=== PATIENT | female | born 1935 | race Caucasian/White ===

== ENCOUNTER → 2018-08-14 | Outpatient (CLI) | payer MEDICARE, BC ==
--- NOTE | 2018-08-16 08:10 | MM ---
Reason for exam: screening (asymptomatic). Last mammogram was performed 1 year and 1 month ago. History: Patient is postmenopausal. Benign stereotactic core biopsy of the left breast, June 28, 2003. Core biopsy of the left breast. Physical Findings: A clinical breast exam by your physician is recommended on an annual basis and results should be correlated with mammographic findings. MG 3D Screening Mammo W/Cad Bilateral CC and MLO view(s) were taken. Prior study comparison: July 04, 2017, bilateral MG 3d screening mammo w/cad. March 01, 2016, bilateral MG screening mammo w CAD. The breast tissue is heterogeneously dense. This may lower the sensitivity of mammography. Stable benign calcifications. There is no discrete abnormality. No significant changes when compared with prior studies. ASSESSMENT: Benign, BI-RAD 2 RECOMMENDATION: Routine screening mammogram of both breasts in 1 year.
== END | disposition home or self-care (01) ==
LOC: RADMAMWWP 09:46
PROVIDERS: ATTEND Internal Medicine
DX: Z12.31 Encounter for screening mammogram for malignant neoplasm of breast (principal)
CPT/HCPCS: 77063; 77067

== ENCOUNTER → 2019-09-25 | Outpatient (CLI) | payer MEDICARE, BC ==
--- NOTE | 2019-09-26 13:32 | MM ---
Reason for exam: screening (asymptomatic). Last mammogram was performed 1 year and 1 month ago. History: Patient is postmenopausal. Benign stereotactic core biopsy of the left breast, June 28, 2003. Core biopsy of the left breast. Physical Findings: A clinical breast exam by your physician is recommended on an annual basis and results should be correlated with mammographic findings. MG 3D Screening Mammo W/Cad Bilateral CC and MLO view(s) were taken. Prior study comparison: August 14, 2018, bilateral MG 3d screening mammo w/cad. July 04, 2017, bilateral MG 3d screening mammo w/cad. The breast tissue is heterogeneously dense. This may lower the sensitivity of mammography. There is a stable left upper outer quadrant 4mm mass at middle depth. Benign appearing bilateral calcifications. No suspicious abnormality. Left biopsy marker noted. No significant changes when compared with prior studies. ASSESSMENT: Benign, BI-RAD 2 RECOMMENDATION: Routine screening mammogram of both breasts in 1 year.
== END | disposition home or self-care (01) ==
LOC: RADMAMWWP 11:18
PROVIDERS: ATTEND Internal Medicine
DX: Z12.31 Encounter for screening mammogram for malignant neoplasm of breast (principal)
CPT/HCPCS: 77063; 77067

== ENCOUNTER 2020-09-20 14:29 | Inpatient (IN) | payer MEDICARE, BC ==
--- NOTE | 2020-09-20 15:07 | ED ---
Lower Extremity Injury HPI - General Chief Complaint: Extremity Injury, Lower Stated Complaint: R hip pain Time Seen by Provider: 09/20/20 14:37 Source: patient, EMS Mode of arrival: EMS Limitations: no limitations - History of Present Illness Initial Comments: 84-year-old female presents with right hip discomfort that occurred just prior to arrival. Patient states she was walking into [employer] in [place] for her first, but then when she tripped and fell and landed on her buttocks. Patient states she felt pain immediately in the right hip area. Patient states her family to help lift her up and put her in a wheelchair. Patient states she was unable to bear weight. Patient having pain mainly in the right hip also in the right lower extremity garcia region. She denies any numbness or tingling or previous injury to that area. Patient denies any abdominal pain. She denies any head injury no neck pain no back pain no loss of consciousness. MD Complaint: hip injury (right) -: hour(s) (1-2) Injury: Hip: Right, Thigh: Right Type of Injury: other (fall) Place: street/outdoors Severity: moderate Severity scale (1-10): 6 Improves With: immobilization Worsens With: movement, palpation Context: fall, walking Associated Symptoms: snap/pop sensation, unable to bear weight Treatments Prior to Arrival: cervical collar, splint, other (ems) - Related Data Home Medications Medication Instructions Recorded Confirmed ALPRAZolam [Xanax] 0.125 mg PO BID@0900,1700 09/20/20 09/20/20 Acetaminophen Tab [Tylenol] 500 mg PO Q8H PRN 09/20/20 09/20/20 Aspirin EC [Ecotrin Low Dose] 81 mg PO DAILY 09/20/20 09/20/20 Cholecalciferol [Vitamin D3 (25 25 mcg PO DAILY 09/20/20 09/20/20 Mcg = 1000 Iu)] Ezetimibe/Simvastatin [Vytorin 1 tab PO HS 09/20/20 09/20/20 10-20 mg] Loratadine [Claritin] 10 mg PO DAILY 09/20/20 09/20/20 Multivit-Min/Iron/Folic/Lutein 1 tab PO DAILY 09/20/20 09/20/20 [Centrum Silver Women Tablet] Raloxifene HCl 60 mg PO DAILY 09/20/20 09/20/20 Vit C/E/Zn/Coppr/Lutein/Zeaxan 1 tab PO DAILY 09/20/20 09/20/20 [Preservision Areds 2 Softgel] Allergies Allergy/AdvReac Type Severity Reaction Status Date / Time Sulfa (Sulfonamide Allergy Anaphylaxis Verified 09/20/20 16:49 Antibiotics) Review of Systems ROS Statement: Those systems with pertinent positive or pertinent negative responses have been documented in the HPI. ROS Other: All systems not noted in ROS Statement are negative. Constitutional: Reports: as per HPI Eyes: Reports: as per HPI ENT: Reports: as per HPI Respiratory: Reports: as per HPI Cardiovascular: Reports: as per HPI Endocrine: Reports: as per HPI Musculoskeletal: Reports: other (right hip/thigh/r le pain) Skin: Denies: rash Neurological: Reports: abnormal gait (ubable to bear weight). Denies: headache, numbness, paresthesias, confusion Past Medical History Past Medical History: Hyperlipidemia, Osteoarthritis (OA) Additional Past Medical History / Comment(s): chronic back pain History of Any Multi-Drug Resistant Organisms: None Reported Past Surgical History: No Surgical Hx Reported Past Psychological History: No Psychological Hx Reported Smoking Status: Never smoker Past Alcohol Use History: None Reported Past Drug Use History: None Reported General Exam Limitations: no limitations General appearance: alert, in no apparent distress Head exam: Present: atraumatic, normocephalic, normal inspection Eye exam: Present: normal appearance, PERRL, EOMI. Absent: scleral icterus, conjunctival injection, periorbital swelling ENT exam: Present: normal exam, mucous membranes moist Neck exam: Present: normal inspection. Absent: tenderness, meningismus, lymphadenopathy Respiratory exam: Present: normal lung sounds bilaterally. Absent: respiratory distress, wheezes, rales, rhonchi, stridor Cardiovascular Exam: Present: regular rate, normal rhythm, normal heart sounds. Absent: systolic murmur, diastolic murmur, rubs, gallop, clicks GI/Abdominal exam: Present: soft, normal bowel sounds. Absent: distended, tenderness, guarding, rebound, rigid Extremities exam: Present: tenderness (right lateral hip and thigh region), normal capillary refill. Absent: full ROM, pedal edema, joint swelling, calf tenderness Right Hip exam: Present: tenderness, swelling, deformity Upper Leg exam: Present: tenderness, swelling, deformity Knee exam: Present: normal inspection. Absent: tenderness, swelling, abrasion, ecchymosis, deformity Lower Leg exam: Present: normal inspection, full ROM, tenderness (right lateral garcia) Ankle exam: Present: normal inspection, full ROM, tenderness. Absent: swelling, abrasion, dislocation Foot/Toe exam: Present: normal inspection, full ROM, tenderness. Absent: ecchymosis Back exam: Present: normal inspection Neurological exam: Present: alert, oriented X3, CN II-XII intact Course Vital Signs 09/20/20 09/20/20 14:32 17:12 Temperature 97.7 F Pulse Rate 71 65 Respiratory 18 17 Rate Blood Pressure 149/77 143/68 O2 Sat by Pulse 96 99 Oximetry Medical Decision Making - Medical Decision Making pt was brought by ems in which she was given multiple doses on pain medication prior to arrival. Upon initial exam patient comfortable unless extremity injured area is palpated. After reviewing x-rays which showed a right hip fracture comminuted slightly displaced and patient will be admitted. Family requesting Dr. Josep Mcguire for admission. EKG was reviewed sinus bradycardia rate 57 OR 128 ms QRS [address] valencia , he called requested ortho and discussed admission - Lab Data Result diagrams: 09/20/20 16:06 09/20/20 16:06 Lab Results 09/20/20 09/20/20 09/20/20 Range/Units 16:06 16:06 16:06 WBC 17.0 H (3.8-10.6) k/uL RBC 4.04 (3.80-5.40) m/uL Hgb 13.5 (11.4-16.0) gm/dL Hct 39.4 (34.0-46.0) % MCV 97.6 (80.0-100.0) fL MCH 33.4 (25.0-35.0) pg MCHC 34.2 (31.0-37.0) g/dL RDW 11.9 (11.5-15.5) % Plt Count 198 (150-450) k/uL MPV 7.1 Neutrophils % 89 % Lymphocytes % 6 % Monocytes % 3 % Eosinophils % 1 % Basophils % 0 % Neutrophils # 15.1 H (1.3-7.7) k/uL Lymphocytes # 1.1 (1.0-4.8) k/uL Monocytes # 0.5 (0-1.0) k/uL Eosinophils # 0.2 (0-0.7) k/uL Basophils # 0.0 (0-0.2) k/uL PT 10.8 (9.0-12.0) sec INR 1.0 (<1.2) APTT 19.1 L (22.0-30.0) sec Sodium 138 (137-145) mmol/L Potassium 4.0 (3.5-5.1) mmol/L Chloride 105 (98-107) mmol/L Carbon Dioxide 21 L (22-30) mmol/L Anion Gap 12 mmol/L BUN 21 H (7-17) mg/dL Creatinine 0.75 (0.52-1.04) mg/dL Est GFR (CKD-EPI)AfAm 86 (>60 ml/min/1.73 sqM) Est GFR (CKD-EPI)NonAf 75 (>60 ml/min/1.73 sqM) Glucose 146 H (74-99) mg/dL Calcium 9.2 (8.4-10.2) mg/dL Total Bilirubin 0.5 (0.2-1.3) mg/dL AST 25 (14-36) U/L ALT 18 (4-34) U/L Alkaline Phosphatase 67 (38-126) U/L Total Protein 6.7 (6.3-8.2) g/dL Albumin 4.2 (3.5-5.0) g/dL Blood Type Blood Type Recheck Bld Type Recheck Status Antibody Screen Spec Expiration Date 09/20/20 Range/Units 16:06 WBC (3.8-10.6) k/uL RBC (3.80-5.40) m/uL Hgb (11.4-16.0) gm/dL Hct (34.0-46.0) % MCV (80.0-100.0) fL MCH (25.0-35.0) pg MCHC (31.0-37.0) g/dL RDW (11.5-15.5) % Plt Count (150-450) k/uL MPV Neutrophils % % Lymphocytes % % Monocytes % % Eosinophils % % Basophils % % Neutrophils # (1.3-7.7) k/uL Lymphocytes # (1.0-4.8) k/uL Monocytes # (0-1.0) k/uL Eosinophils # (0-0.7) k/uL Basophils # (0-0.2) k/uL PT (9.0-12.0) sec INR (<1.2) APTT (22.0-30.0) sec Sodium (137-145) mmol/L Potassium (3.5-5.1) mmol/L Chloride (98-107) mmol/L Carbon Dioxide (22-30) mmol/L Anion Gap mmol/L BUN (7-17) mg/dL Creatinine (0.52-1.04) mg/dL Est GFR (CKD-EPI)AfAm (>60 ml/min/1.73 sqM) Est GFR (CKD-EPI)NonAf (>60 ml/min/1.73 sqM) Glucose (74-99) mg/dL Calcium (8.4-10.2) mg/dL Total Bilirubin (0.2-1.3) mg/dL AST (14-36) U/L ALT (4-34) U/L Alkaline Phosphatase (38-126) U/L Total Protein (6.3-8.2) g/dL Albumin (3.5-5.0) g/dL Blood Type A Positive Blood Type Recheck No Previous Record Bld Type Recheck Status CABO Indicated Antibody Screen NEGATIVE Spec Expiration Date 09/23/20202305 - EKG Data EKG shows normal: sinus rhythm Rate: bradycardia Interpretation: no acute changes, normal EKG Disposition Clinical Impression: Fracture of hip Disposition: ADMITTED IP TO THIS [facility] Is patient prescribed a controlled substance at d/c from ED?: No Time of Disposition: 17:39
--- NOTE | 2020-09-20 15:49 | XR ---
Right hip and right femur HISTORY: Trauma and pain 2 views of the right hip, frontal and lateral views of the right femur on 4 images There is a comminuted mildly displaced, right intertrochanteric proximal femoral fracture with result ing varus deformity, no dislocation. Osteoarthritic changes present in the right knee. IMPRESSION: Right hip fracture
--- NOTE | 2020-09-20 15:55 | XR ---
Right leg HISTORY: Trauma and pain 2 views of the right leg on 3 images, correlation to right femur same date Bone mineralization is reduced. Osteoarthritic change present in the right knee. Alignment is maintai tracey. IMPRESSION: No fracture or dislocation.
--- NOTE | 2020-09-20 15:58 | XR ---
EXAMINATION TYPE: XR chest 1V DATE OF EXAM: 09/20/2020 COMPARISON: None HISTORY: Hip fracture, pain TECHNIQUE: Single frontal view of the chest is obtained. FINDINGS: There is questionable left upper lobe increased attenuation, no pleural effusion, or pneum othorax seen. The cardiac silhouette size is within normal limits. Patient is rotated. There are ove rlying leads and artifacts. The osseous structures are intact. Aorta is dense. IMPRESSION: Questionable density in the left upper lobe may be related to technique, patient is rota kelsey, follow-up PA and lateral chest x-ray when patient is stable for better evaluation. Correlate to exclude pneumonia.
[2020-09-20] MEDS ORDERED: ACETAMINOPHEN TAB 325 MG TAB PO PRN (16:17)
[2020-09-20] MEDS ORDERED: NALOXONE 0.4 MG/ML 1 ML VIAL IV PRN (16:17)
[2020-09-20 16:22] LABS: Basophils % (A) 0 %; Eosinophils # (A) 0.2 k/uL (0-0.7); Eosinophils % (A) 1 %; HCT 39.4 % (34.0-46.0); HGB 13.5 gm/dL (11.4-16.0); Lymphocytes # (A) 1.1 k/uL (1.0-4.8); Lymphocytes % (A) 6 %; MCH 33.4 pg (25.0-35.0); MCHC 34.2 g/dL (31.0-37.0); MCV 97.6 fL (80.0-100.0); Mean Platelet Volume 7.1; Monocytes # (A) 0.5 k/uL (0-1.0); Monocytes % (A) 3 %; Neutrophils # (A) 15.1 k/uL (1.3-7.7); Neutrophils % (A) 89 %; Platelet Count 198 k/uL (150-450); RBC 4.04 m/uL (3.80-5.40); RDW 11.9 % (11.5-15.5)
[2020-09-20 16:35] LABS: Albumin 4.2 g/dL (3.5-5.0); Calcium 9.2 mg/dL (8.4-10.2); Total Bilirubin 0.5 mg/dL (0.2-1.3); Total Protein 6.7 g/dL (6.3-8.2)
[2020-09-20 16:40] LABS: Prothrombin Time 10.8 sec (9.0-12.0)
[2020-09-20 16:45] LABS: Partial Thromboplastin Time 19.1 sec (22.0-30.0)
[2020-09-20] MEDS: HYDROmorphone 1 MG/ML 1 ML SYRINGE IVP PRN ×3 (17:07→23:32)
[2020-09-20] MEDS: ONDANSETRON 4 MG/2 ML VIAL IVP STA (17:26)
[2020-09-20] MEDS: 0.9% NACL WITH KCL 20 MEQ/L 1,000 ML IV SCH (23:30)
[2020-09-21] MEDS: HYDROmorphone 1 MG/ML 1 ML SYRINGE IVP PRN ×5 (05:12→23:49)
--- NOTE | 2020-09-21 08:44 | P.HPOR ---
History of Present Illness H&P Date: 09/21/20 Chief Complaint: Right hip fracture The patient is a very pleasant 84-year-old female with a past medical history of hyperlipidemia and osteoarthritis who presented to the emergency department yesterday after a fall. She states she was walking into the pharmacy to receive her first COVID vaccine and fell. She had immediate right hip pain and was unable to bear weight on the leg. She is brought to the emergency department where a intertrochanteric fracture was found. She was admitted to orthopedics for further surgical intervention. The patient denies any major medical issues such as stroke or heart attack in the past. 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 The patient denies any other injuries or head injury that occurred during the fall. This morning, the patient states that she is comfortable while lying in bed but has pain with any movement of the right leg. The pain medication is controlling her pain at this time. Review of Systems Constitutional: Denies chills, Denies fatigue, Denies fever Cardiovascular: Denies chest pain, Denies shortness of breath Respiratory: Denies cough Gastrointestinal: Denies diarrhea, Denies nausea, Denies vomiting Musculoskeletal: right: hip pain, hip stiffness, hip swelling Past Medical History Past Medical History: Hyperlipidemia, Osteoarthritis (OA) Additional Past Medical History / Comment(s): chronic back pain History of Any Multi-Drug Resistant Organisms: None Reported Past Surgical History: No Surgical Hx Reported Additional Past Surgical History / Comment(s): Cataract bilat removed. Past Anesthesia/Blood Transfusion Reactions: No Reported Reaction Past Psychological History: Anxiety Smoking Status: Never smoker Past Alcohol Use History: None Reported Past Drug Use History: None Reported - Past Family History Mother Additional Family Medical History / Comment(s): Macular degeneration Father Family Medical History: Renal Disease Additional Family Medical History / Comment(s): A kidney removed. Medications and Allergies Home Medications Medication Instructions Recorded Confirmed Type ALPRAZolam [Xanax] 0.125 mg PO BID@0900,1700 09/20/20 09/20/20 History Acetaminophen Tab [Tylenol] 500 mg PO Q8H PRN 09/20/20 09/20/20 History Aspirin EC [Ecotrin Low Dose] 81 mg PO DAILY 09/20/20 09/20/20 History Cholecalciferol [Vitamin D3 (25 25 mcg PO DAILY 09/20/20 09/20/20 History Mcg = 1000 Iu)] Ezetimibe/Simvastatin [Vytorin 1 tab PO HS 09/20/20 09/20/20 History 10-20 mg] Loratadine [Claritin] 10 mg PO DAILY 09/20/20 09/20/20 History Multivit-Min/Iron/Folic/Lutein 1 tab PO DAILY 09/20/20 09/20/20 History [Centrum Silver Women Tablet] Raloxifene HCl 60 mg PO DAILY 09/20/20 09/20/20 History Vit C/E/Zn/Coppr/Lutein/Zeaxan 1 tab PO DAILY 09/20/20 09/20/20 History [Preservision Areds 2 Softgel] Allergies Allergy/AdvReac Type Severity Reaction Status Date / Time Sulfa (Sulfonamide Allergy Anaphylaxis Verified 09/20/20 16:49 Antibiotics) Physical Examination The patient is an 84 year old female that is no acute distress. She is alert and oriented x3. The patient's head is normocephalic and atraumatic. Exam of the cervical spine reveals no pain upon palpation or range of motion. Exam of the bilateral upper extremities reveal no obvious deformities or pain upon range of motion. Exam of the left lower extremity reveals no pain upon palpation. Exam of the right lower extremity reveals a externally rotated and shortened leg. No pain upon palpation to the lateral hip. There is pain upon logrolling and any range of motion of the leg. Bilateral calves are soft and nontender. Patient has good foot and ankle motion bilaterally. Neurological and circulatory status is intact. Results - Labs Labs: Abnormal Lab Results - Last 24 Hours (Table) 09/20/20 09/20/20 09/20/20 Range/Units 16:06 16:06 16:06 WBC 17.0 H (3.8-10.6) k/uL Neutrophils # 15.1 H (1.3-7.7) k/uL APTT 19.1 L (22.0-30.0) sec Carbon Dioxide 21 L (22-30) mmol/L BUN 21 H (7-17) mg/dL Glucose 146 H (74-99) mg/dL H & H 09/20/20 Range/Units 16:06 Hgb 13.5 (11.4-16.0) gm/dL Hct 39.4 (34.0-46.0) % Coagulation 09/20/20 Range/Units 16:06 INR 1.0 (<1.2) Result Diagrams: 09/20/20 16:06 09/20/20 16:06 - Diagnostic results Hip x-ray: image reviewed (X-rays of the right hip dated 09/20/2020 reveals a comminuted mildly displaced intertrochanteric fracture.) Assessment and Plan (1) Closed right hip fracture Current Visit: Yes Status: Acute Code(s): S72.001A - FRACTURE OF UNSP PART OF NECK OF RIGHT FEMUR, INIT SNOMED Code(s): 192936639 (2) Hyperlipidemia Current Visit: Yes Status: Acute Code(s): E78.5 - HYPERLIPIDEMIA, UNSPECIFIED SNOMED Code(s): 79351028 (3) Osteoarthritis Current Visit: Yes Status: Acute Code(s): M19.90 - UNSPECIFIED OSTEOARTHRITIS, UNSPECIFIED SITE SNOMED Code(s): 302405569 Plan: The clinical and x-ray findings were discussed with the patient. The case was discussed at length with Dr. Josep Nayak. Treatment options were discussed and surgical intervention is recommended. We discussed the surgical plan as well as the expected postoperative course. Risks and benefits were reviewed including (but not limited to) the risks of infection, bleeding, blood clots, delayed or nonunion, anesthesia-related complications and possible need for additional surgery. Questions were invited and answered. The patient expressed understanding and wishes to proceed with surgery. The patient will be kept on bedrest. Continue PRN pain management. NPO today. She is scheduled for a closed reduction with insertion of intramedullary nail of the right hip later this afternoon. We will await pre-op clearance from internal medicine.
[2020-09-21] MEDS ORDERED: hydrALAZINE HCL 20 MG/ML 1 ML VIAL IVP PRN (10:14)
--- NOTE | 2020-09-21 10:24 | P.CONS ---
History of Present Illness - Reason for Consult Consult date: 09/21/20 Medical management Requesting physician: Josep Nayak - Chief Complaint Right hip fracture - History of Present Illness This is an 84-year-old female patient who presented to the ER after sustaining a fall to her right hip. Patient reports that she was going into [employer] to receive her first dose of the COVID vaccine and lost her balance while stepping out of the car onto the sidewalk. Patient's daughter is at bedside and was there during incident. Patient denies hitting her head or any other injuries. Femur x-ray completed showing right hip fracture. Tibia-fibula x-ray completed showing no fracture or dislocation. Patient has past medical history of hyp erlipidemia osteoarthritis and chronic back pain. white blood cell count 17.0. Patient denies any acute complaints denies any recent illness including fever, shortness of breath, cough, nausea, vomiting, diarrhea or urinary burning or frequency. At this time patient is admitted to orthopedic services and planning for surgical intervention today 09/21/2020. Due to weight blood cell count will order repeat chest x-ray and urinary analysis repeat labs. Patient also having elevated blood pressure will order hydralazine when necessary. Patient denies any significant cardiac history. Patient denies CA, irregular heart rate, congestive heart failure or blood clots. At this time patient is resting comfortably in bed patient denies any chest pain or shortness of breath. Patient denies nausea vomiting or diarrhea. Patient denies any urinary burning or frequency Review of Systems Please refer to HPI otherwise unremarkable Past Medical History Past Medical History: Hyperlipidemia, Osteoarthritis (OA) Additional Past Medical History / Comment(s): chronic back pain History of Any Multi-Drug Resistant Organisms: None Reported Past Surgical History: No Surgical Hx Reported Additional Past Surgical History / Comment(s): Cataract bilat removed. Past Anesthesia/Blood Transfusion Reactions: No Reported Reaction Past Psychological History: Anxiety Smoking Status: Never smoker Past Alcohol Use History: None Reported Past Drug Use History: None Reported - Past Family History Mother Additional Family Medical History / Comment(s): Macular degeneration Father Family Medical History: Renal Disease Additional Family Medical History / Comment(s): A kidney removed. Medications and Allergies Home Medications Medication Instructions Recorded Confirmed Type ALPRAZolam [Xanax] 0.125 mg PO BID@0900,1700 09/20/20 09/20/20 History Acetaminophen Tab [Tylenol] 500 mg PO Q8H PRN 09/20/20 09/20/20 History Aspirin EC [Ecotrin Low Dose] 81 mg PO DAILY 09/20/20 09/20/20 History Cholecalciferol [Vitamin D3 (25 25 mcg PO DAILY 09/20/20 09/20/20 History Mcg = 1000 Iu)] Ezetimibe/Simvastatin [Vytorin 1 tab PO HS 09/20/20 09/20/20 History 10-20 mg] Loratadine [Claritin] 10 mg PO DAILY 09/20/20 09/20/20 History Multivit-Min/Iron/Folic/Lutein 1 tab PO DAILY 09/20/20 09/20/20 History [Centrum Silver Women Tablet] Raloxifene HCl 60 mg PO DAILY 09/20/20 09/20/20 History Vit C/E/Zn/Coppr/Lutein/Zeaxan 1 tab PO DAILY 09/20/20 09/20/20 History [Preservision Areds 2 Softgel] Allergies Allergy/AdvReac Type Severity Reaction Status Date / Time Sulfa (Sulfonamide Allergy Anaphylaxis Verified 09/20/20 16:49 Antibiotics) Physical Exam Vitals: Vital Signs Temp Pulse Pulse Resp BP BP Pulse Ox 09/21/20 07:43 97.8 F 77 16 147/62 98 09/21/20 06:46 97.9 F 76 18 159/67 95 09/21/20 04:28 97.9 F 76 18 159/67 95 09/21/20 04:19 98.2 F 71 16 140/82 97 09/20/20 22:00 66 18 181/77 98 09/20/20 17:12 65 17 143/68 99 09/20/20 14:32 97.7 F 71 18 149/77 96 Intake and Output 09/20/20 09/21/20 09/21/20 22:59 06:59 14:59 Output Total 300 Balance -300 Output: Urine 300 Other: Weight 58.967 kg Head normocephalic Neck supple Lungs clear to auscultation bilaterally no wheezing or crackles Heart regular rate and rhythm S1-S2, no rub or gallop Abdomen is soft nontender nondistended positive bowel sounds no hepatosplenomegaly Extremities no edema Neuro alert and orientated to 3 Results CBC & Chem 7: 09/20/20 16:06 09/20/20 16:06 Labs: Abnormal Lab Results - Last 24 Hours (Table) 09/20/20 09/20/20 09/20/20 Range/Units 16:06 16:06 16:06 WBC 17.0 H (3.8-10.6) k/uL Neutrophils # 15.1 H (1.3-7.7) k/uL APTT 19.1 L (22.0-30.0) sec Carbon Dioxide 21 L (22-30) mmol/L BUN 21 H (7-17) mg/dL Glucose 146 H (74-99) mg/dL Assessment and Plan Assessment: 1. Right hip fracture status post fall. Plans for surgical intervention today 09/21/2020 2. Leukocytosis. White blood cell count elevated at 17.0 possibly reactive. Will order urinary analysis and repeat chest x-ray. Patient received 1 dose of IV Kefzol prior to surgery 3. Hypertension. Will order hydralazine when necessary 4. Hyperlipidemia. Maintained on statin. 5. History of osteoarthritis 6. History of anxiety. Patient maintained on statin
--- NOTE | 2020-09-21 11:18 | XR ---
EXAMINATION TYPE: XR chest 2V DATE OF EXAM: 09/21/2020 COMPARISON: Chest x-ray 09/20/2020 HISTORY: Elevated white blood cell count, abnormal chest x-ray TECHNIQUE: Frontal and lateral views of the chest are obtained. FINDINGS: There is no significant interval change. There is a spinal curvature. IMPRESSION: No acute cardiopulmonary process. Stable exam.
[2020-09-21 13:30] LABS: ALT 21 U/L (4-34); AST 41 U/L (14-36); African American GFR (CKD) 85 (>60 ml/min/1.73 sqM); Albumin 3.7 g/dL (3.5-5.0); Albumin/Globulin Ratio 1.5; Alkaline Phosphatase 57 U/L (38-126); Anion Gap 6 mmol/L; Blood Urea Nitrogen 17 mg/dL (7-17); Calcium 9.1 mg/dL (8.4-10.2); Carbon Dioxide 25 mmol/L (22-30); Chloride 106 mmol/L (98-107); Globulin 2.4 g/dL; Glucose 108 mg/dL (74-99); Non-African American GFR(CKD) 74 (>60 ml/min/1.73 sqM); Potassium 4.5 mmol/L (3.5-5.1); Sodium 137 mmol/L (137-145); Total Bilirubin 0.5 mg/dL (0.2-1.3); Total Protein 6.1 g/dL (6.3-8.2)
[2020-09-21 13:58] LABS: Appearance,Urine Clear (Clear); Bilirubin,Urine Negative (Negative); Blood,Urine Trace (Negative); Color,Urine Yellow; Glucose,Urine (UA) Negative (Negative); Hyaline Casts,Urine 1 /lpf (0-2); Ketones,Urine 1+ (Negative); Leukocyte Esterase,Urine Trace (Negative); Mucus,Urine Occasional /hpf; Nitrite,Urine Negative (Negative); PH, Urine 5.5 (5.0-8.0); Protein,Urine Trace (Negative); RBC,Urine 11 /hpf (0-5); Specific Gravity,Urine 1.024 (1.001-1.035); Squamous Epithelial Cell,Urine <1 /hpf (0-4); Urobilinogen,Urine <2.0 mg/dL (<2.0); WBC,Urine 24 /hpf (0-5)
[2020-09-21 15:45] LABS: Basophils # (A) 0.05 X 10*3/uL (0.00-0.10); Basophils % (A) 0.3 %; Eosinophils # (A) 0.01 X 10*3/uL (0.04-0.35); Eosinophils % (A) 0.1 %; HCT 35.1 % (37.2-46.3); HGB 11.8 g/dL (12.0-15.0); Lymphocytes # (A) 1.55 X 10*3/uL (0.90-5.00); Lymphocytes % (A) 9.9 %; MCHC 33.6 g/dL (32.0-37.0); Mean Platelet Volume 10.1 fL (9.5-12.2); Monocytes % (A) 9.6 %; Neutrophils % (A) 79.5 %; Platelet Count 198 X 10*3/uL (140-440); RBC 3.58 X 10*6/uL (4.10-5.20); RDW 12.2 % (11.5-14.5)
[2020-09-21] MEDS: LACTATED RINGERS 1,000 ML IV ONE ×3 (15:46→15:59)
[2020-09-21] MEDS: ONDANSETRON 4 MG/2 ML VIAL IVP STA ×2 (15:49→15:57)
[2020-09-21] MEDS ORDERED: MAGNESIUM HYDROXIDE 2,400 MG/10 ML CUP PO PRN (15:52)
[2020-09-21] MEDS ORDERED: ONDANSETRON 4 MG/2 ML VIAL IVP PRN (15:52)
[2020-09-21] MEDS ORDERED: hydrOXYzine pamoate 25 MG CAP PO PRN (15:52)
[2020-09-21] MEDS ORDERED: HYDROcodone/APAP 5-325MG 1 EACH TAB PO PRN ×2 (15:52)
[2020-09-21] MEDS: 0.9% NACL WITH KCL 20 MEQ/L 1,000 ML IV SCH ×2 (15:53→20:55)
[2020-09-21] MEDS ORDERED: IV FLUID CONTINUATION 1,000 ML IV ONE (16:39)
[2020-09-21] MEDS ORDERED: SODIUM CHLORIDE 0.9% 100 ML with ceFAZolin 2,000 MG IV ONE ×2 (16:39)
[2020-09-21] MEDS ORDERED: PHENYLEPHRINE-0.9% NACL SYG 1,000 MCG/10 ML SYRINGE ONE (16:55)
[2020-09-21] MEDS ORDERED: MIDAZOLAM 2 MG/2 ML VIAL ONE (16:55)
[2020-09-21] MEDS ORDERED: KETAMINE 10 MG/ML 20 ML VIAL ONE (16:55)
[2020-09-21] MEDS ORDERED: fentaNYL (PF) 50 MCG/ML 2 ML AMP ONE (16:55)
[2020-09-21] MEDS ORDERED: LACTATED RINGERS 1,000 ML IV ONE (17:43)
--- NOTE | 2020-09-21 17:54 | P.OP ---
Date of Procedure: 09/21/20 Preoperative Diagnosis: 4 part intratrochanteric fracture right hip Postoperative Diagnosis: 4 part intratrochanteric fracture right hip Procedure(s) Performed: Close reduction and intramedullary nailing of the right hip Implants: [employer] Tri[employer] Intertan nail 125, 11.5 mm x 18 cm. [employer] Intertan integrated-interlocking lag screw, 100 mm lag screw, 95 mm compression screw. [employer] L-P screw, 5.0 mm x 25 mm. Anesthesia: spinal Surgeon: Josep Nayak Estimated Blood Loss (ml): 200 Pathology: none sent Condition: stable Disposition: PACU Indications for Procedure: This is an 84-year-old female that slipped and fell yesterday onto her right hip. X-rays demonstrate a 4 part intratrochanteric fracture of her right hip. After discussing the surgical and nonsurgical treatment options with her and her family at length, I recommended a close reduction and intramedullary nailing of the right hip. Informed consent was obtained. Operative Findings: The operative findings are consistent with a four-part intertrochanteric fracture of the right hip Description of Procedure: The patient was seen in the preoperative area, consent was reviewed, and the operative site was marked with a skin marker. The surgical procedure was discussed at length with both the patient and the family at the bedside. All questions were answered to the best of my ability. The patient was brought to the operating room and placed on the fracture table. Anesthesia was administered by the anesthesia department. 2 g of Ancef were administered intravenously. The patient was placed supine on the fracture table with the fractured extremity in traction boot. The other extremity was placed in a well leg pimentel and the bony prominences were well padded. A universal timeout was then performed which confirmed the patient's name, surgical site, ALLERGIES, and consent. Fracture reduction was performed with a traction and abduction maneuver which was confirmed with fluoroscopy, both AP and lateral views.. After reduction was performed, the extremity was then prepped with ChloraPrep solution and draped in the usual sterile fashion. Utilizing fluoroscopy to identify the tip of the greater trochanter, a 3 cm longitudinal incision was made just proximal to the greater trochanter. Incision was carried through the fascia to the tip of the greater trochanter. Utilizing a curved awl, the entry point was created at the tip of the greater trochanter and centralized in the AP and lateral planes. These locations were confirmed by fluoroscopy. A guidewire was then inserted down the medullary canal. Sequentially reaming of the femur was performed to 13 mm distally and 17 mm proximally with the channel reamer. After reaming, appropriate size nail was inserted over the guidewire. The nail was inserted to the appropriate depth and the guidewire was removed. Placement of the sil was confirmed with both AP and lateral fluoroscopic views. The lag screw drill sleeve was placed in the jig and a small skin incision was made on the lateral aspect of the leg and the lag screw drill sleeve was locked into the guide. The 3.2 mm guide pin sleeve was inserted through the lag screw drill sleeve down to bone. A 3.2 mm distally threaded guidewire was inserted through the guide pin sleeve. The guidewire was inserted in the desired position in the femoral head, both anterior and posterior. The lag screw length cage was inserted over the guidepin to the back of the lag screw drill sleeve. Lag screw length was then measured from the cage. Next, the 7.0 mm compression screw starter drill was inserted in the lag screw drill sleeve beneath the guidepin. The compression screw starter drill was advanced under power until it abutted the back and of the lag screw drill sleeve. The 7.0 mm compression screw drill was inserted through the lag screw drill sleeve into the hole created by the compression screw starter drill. This was advanced under fluoroscopy to a depth 5 mm less and the measurement taken for the guidepin. The compression screw drill was removed and the antirotation bar was inserted into the same hole. The 3.2 mm guide pin sleeve was then removed from the drill guide. The lag screw drill was then inserted to a depth that was measured by the lag screw gauge. This was done under fluoroscopy. The lag screw was inserted over the guidewire to the appropriate depth using fluoroscopy. Traction was then released. The antirotation bar was then removed and the compression screw was advanced through the lag screw drill sleeve beneath the lag screw. This was advanced to the appropriate compression was achieved. The proximal drill guide was then removed and the distal drill guide was then inserted in the jig. Skin incision was made down to bone and the distal drill guide was then placed. Distal hole was then drilled with a 4.0 mm drill and measured to the appropriate depth. Distal screw was then placed. The entire assembly was then removed and final fluoroscopic x-rays were obtained. The wounds were then irrigated copiously with saline solution. Fascia was closed with 0-Vicryl. Subcutaneous tissues were closed with 2-0 Vicryl and the skin was closed with sofi. Sterile dressings were applied. The patient was transported to the recovery room in stable condition.
[2020-09-21] MEDS: SENNOSIDES-DOCUSATE SODIUM 1 EACH TAB PO SCH (20:53)
[2020-09-21] MEDS: ALPRAZolam 0.25 MG TAB PO SCH (20:53)
[2020-09-21] MEDS: EZETIMIBE 10 MG TAB PO SCH (20:53)
[2020-09-21] MEDS: ATORVASTATIN 10 MG TAB PO SCH (20:53)
[2020-09-22] MEDS: HYDROmorphone 1 MG/ML 1 ML SYRINGE IVP PRN (04:59)
[2020-09-22] MEDS: RIVAROXABAN 10 MG TAB PO SCH (08:24)
[2020-09-22] MEDS: ALPRAZolam 0.25 MG TAB PO SCH ×2 (08:24→16:48)
[2020-09-22] MEDS: CHOLECALCIFEROL 25 MCG (1000 IU) TABLET PO SCH (08:25)
[2020-09-22] MEDS: VIT A,C & E-LUTEIN-MINERALS 1 EACH TAB PO SCH (08:25)
[2020-09-22] MEDS: RALOXIFENE 60 MG TAB PO SCH (08:25)
[2020-09-22] MEDS: LORATADINE 10 MG TAB PO SCH (08:25)
--- NOTE | 2020-09-22 10:06 | FL ---
EXAMINATION TYPE: FL guidance operating room DATE OF EXAM: 09/21/2020 HISTORY: Fluoroscopy time 1 minute and 36 seconds of fluoroscopy provided. IMPRESSION: 1. Fluoroscopy time.
--- NOTE | 2020-09-22 10:25 | XR ---
EXAMINATION TYPE: XR Hip Complete RT DATE OF EXAM: 09/21/2020 COMPARISON: NONE HISTORY: Postop TECHNIQUE: One view submitted. FINDINGS: There is postsurgical change in near anatomic alignment. There is soft tissue edema and emphysema. IMPRESSION: 1. Postoperative change. Appears in near-anatomic alignment.
--- NOTE | 2020-09-22 10:36 | P.PN ---
Subjective Progress Note Date: 09/22/20 This is an 84-year-old female with status post closed reduction and intramedullary nailing of the right hip. This is postoperative day #1. Patient is seen and evaluated at bedside today. Patient states that she is sore today, but was able to transfer to a chair with physical therapy today. Patient denies any new complaints today. Objective - Vital Signs Vital signs: Vital Signs Temp 99.8 F H 09/22/20 07:00 Pulse 94 09/22/20 07:00 Resp 16 09/22/20 07:00 BP 121/68 09/22/20 07:00 Pulse Ox 95 09/22/20 07:00 Intake & Output 09/21/20 09/22/20 09/22/20 18:59 06:59 18:59 Intake Total 1850 100 236 Output Total 575 400 Balance 1275 -300 236 Weight 58.967 kg Intake: IV 1850 ceFAZolin 2 gm In Sodium 50 Chloride 0.9% 50 ml @ 100 mls/hr IVPB ONCE ONE Rx# :[id number] cefTRIAXone 1 gm In 800 Sodium Chloride 0.9% 50 ml @ 100 mls/hr IVPB Q24HR [facility] Rx#:[id number] Oral 100 236 Output: Urine 375 400 Estimated Blood Loss 200 Other: Voiding Method Indwelling Catheter Indwelling Catheter - Exam On exam patient is sitting in a chair in no acute distress. Patient is alert and oriented x3. Dressing is clean, dry and intact. No drainage. No erythema. Calf is soft and nontender to palpation. Sensation intact. Patient has full range of motion of the foot and ankle. Neurovascular status and circulatory status are intact. - Labs CBC & Chem 7: 09/21/20 09:31 09/21/20 09:31 Labs: Abnormal Lab Results - Last 24 Hours (Table) 09/21/20 09/21/20 09/21/20 Range/Units 09:31 09:31 10:30 WBC 15.70 H (4.50-10.00) X 10*3/uL RBC 3.58 L (4.10-5.20) X 10*6/uL Hgb 11.8 L (12.0-15.0) g/dL Hct 35.1 L (37.2-46.3) % MCV 98.0 H (80.0-97.0) fL MCH 33.0 H (27.0-32.0) pg Immature Gran # 0.09 H (0.00-0.04) X 10*3/uL Neutrophils # 12.50 H (1.80-7.70) X 10*3/uL Monocytes # 1.50 H (0.20-1.00) X 10*3/uL Eosinophils # 0.01 L (0.04-0.35) X 10*3/uL Glucose 108 H (74-99) mg/dL AST 41 H (14-36) U/L Total Protein 6.1 L (6.3-8.2) g/dL Urine Protein Trace H (Negative) Urine Ketones 1+ H (Negative) Urine Blood Trace H (Negative) Ur Leukocyte Esterase Trace H (Negative) Urine RBC 11 H (0-5) /hpf Urine WBC 24 H (0-5) /hpf Urine Mucus Occasional H (None) /hpf Assessment and Plan Assessment: Closed reduction and intramedullary nailing of the right hip. (1) Closed right hip fracture Current Visit: Yes Status: Acute Code(s): S72.001A - FRACTURE OF UNSP PART OF NECK OF RIGHT FEMUR, INIT SNOMED Code(s): 663509547 Plan: 1.Toe-touch weightbearing to the right lower extremity. 2. Xarelto for DVT prophylaxis. 3. Physical therapy for mobilization. 4. Appreciate input from medicine. 5. Continue routine postoperative care and pain control. 6. Daily dressing changes. 7. Planning for discharge to rehab or home with homecare in the next 24-48 hours.
[2020-09-22 12:16] LABS: Basophils # (A) 0.01 X 10*3/uL (0.00-0.10); Basophils % (A) 0.1 %; Eosinophils # (A) 0 X 10*3/uL (0.04-0.35); Eosinophils % (A) 0 %; HGB 8.5 g/dL (12.0-15.0); Lymphocytes # (A) 1.31 X 10*3/uL (0.90-5.00); Lymphocytes % (A) 9.5 %; MCH 33.2 pg (27.0-32.0); MCHC 32.7 g/dL (32.0-37.0); MCV 101.6 fL (80.0-97.0); Mean Platelet Volume 10.2 fL (9.5-12.2); Monocytes # (A) 1.55 X 10*3/uL (0.20-1.00); Monocytes % (A) 11.2 %; Neutrophils # (A) 10.94 X 10*3/uL (1.80-7.70); Neutrophils % (A) 78.8 %; Platelet Count 161 X 10*3/uL (140-440); RBC 2.56 X 10*6/uL (4.10-5.20); RDW 12.5 % (11.5-14.5); WBC 13.86 X 10*3/uL (4.50-10.00)
[2020-09-22] MEDS: HYDROmorphone 0.5 MG/0.5 ML SYRINGE IVP PRN ×2 (17:35→20:23)
--- NOTE | 2020-09-22 19:39 | P.PN ---
Subjective Progress Note Date: 09/22/20 This is an 84-year-old female patient who presented to the ER after sustaining a fall to her right hip. Patient reports that she was going into [facility] to receive her first dose of the COVID vaccine and lost her balance while stepping out of the car onto the sidewalk. Patient's daughter is at bedside and was there during incident. Patient denies hitting her head or any other injuries. Femur x-ray completed showing right hip fracture. Tibia-fibula x-ray completed showing no fracture or dislocation. Patient has past medical history of hyperlipidemia osteoarthritis and chronic back pain. white blood cell count 17.0. Patient denies any acute complaints denies any recent illness including fever, shortness of breath, cough, nausea, vomiting, diarrhea or urinary burning or frequency. At this time patient is admitted to orthopedic services and planning for surgical intervention today 09/21/2020. Due to weight blood cell count will order repeat chest x-ray and urinary analysis repeat labs. Patient also having elevated blood pressure will order hydralazine when necessary. Patient denies any significant cardiac history. Patient denies PA, irregular heart rate, congestive heart failure or blood clots. At this time patient is resting comfortably in bed patient denies any chest pain or shortness of breath. Patient denies nausea vomiting or diarrhea. Patient denies any urinary burning or frequency On 09/22/2020 patient was seen and examined on the medical floor she is alert a nd oriented 3 in no apparent distress she was having tachycardia with a heart rate of 125 EKG was done and revealed normal sinus rhythm with tachycardia at the heart rate of 101 at this point will start IV fluid normal saline at 50 mL an hour and monitor closely patient underwent surgery yesterday and is doing well otherwise Objective - Vital Signs Vital signs: Vital Signs Temp 99.8 F H 09/22/20 07:00 Pulse 94 09/22/20 07:00 Resp 16 09/22/20 07:00 BP 121/68 09/22/20 07:00 Pulse Ox 95 09/22/20 07:00 Intake & Output 09/21/20 09/22/20 09/22/20 18:59 06:59 18:59 Intake Total 1850 100 236 Output Total 575 400 Balance 1275 -300 236 Weight 58.967 kg Intake: IV 1850 ceFAZolin 2 gm In Sodium 50 Chloride 0.9% 50 ml @ 100 mls/hr IVPB ONCE ONE Rx# :[id number] cefTRIAXone 1 gm In 800 Sodium Chloride 0.9% 50 ml @ 100 mls/hr IVPB Q24HR [facility] Rx#:[id number] Oral 100 236 Output: Urine 375 400 Estimated Blood Loss 200 Other: Voiding Method Indwelling Catheter Indwelling Catheter - Exam In general patient is alert and oriented 3 in no distress Head normocephalic and atraumatic Neck supple no JVD no goiter Lungs clear to auscultation bilaterally no wheezing or crackles Heart regular rate and rhythm S1-S2, no rub or gallop Abdomen is soft nontender nondistended positive bowel sounds no hepatosplenomegaly Extremities no edema no cyanosis or clubbing Neuro no gross focal neurological deficit - Labs CBC & Chem 7: 09/22/20 06:09 09/21/20 09:31 Labs: Abnormal Lab Results - Last 24 Hours (Table) 09/21/20 09/21/20 09/21/20 Range/Units 09:31 09:31 10:30 WBC 15.70 H (4.50-10.00) X 10*3/uL RBC 3.58 L (4.10-5.20) X 10*6/uL Hgb 11.8 L (12.0-15.0) g/dL Hct 35.1 L (37.2-46.3) % MCV 98.0 H (80.0-97.0) fL MCH 33.0 H (27.0-32.0) pg Immature Gran # 0.09 H (0.00-0.04) X 10*3/uL Neutrophils # 12.50 H (1.80-7.70) X 10*3/uL Monocytes # 1.50 H (0.20-1.00) X 10*3/uL Eosinophils # 0.01 L (0.04-0.35) X 10*3/uL Glucose 108 H (74-99) mg/dL AST 41 H (14-36) U/L Total Protein 6.1 L (6.3-8.2) g/dL Urine Protein Trace H (Negative) Urine Ketones 1+ H (Negative) Urine Blood Trace H (Negative) Ur Leukocyte Esterase Trace H (Negative) Urine RBC 11 H (0-5) /hpf Urine WBC 24 H (0-5) /hpf Urine Mucus Occasional H (None) /hpf 09/22/20 Range/Units 06:09 WBC 13.86 H (4.50-10.00) X 10*3/uL RBC 2.56 L (4.10-5.20) X 10*6/uL Hgb 8.5 L (12.0-15.0) g/dL Hct 26.0 L (37.2-46.3) % MCV 101.6 H (80.0-97.0) fL MCH 33.2 H (27.0-32.0) pg Immature Gran # 0.05 H (0.00-0.04) X 10*3/uL Neutrophils # 10.94 H (1.80-7.70) X 10*3/uL Monocytes # 1.55 H (0.20-1.00) X 10*3/uL Eosinophils # 0 L (0.04-0.35) X 10*3/uL Glucose (74-99) mg/dL AST (14-36) U/L Total Protein (6.3-8.2) g/dL Urine Protein (Negative) Urine Ketones (Negative) Urine Blood (Negative) Ur Leukocyte Esterase (Negative) Urine RBC (0-5) /hpf Urine WBC (0-5) /hpf Urine Mucus (None) /hpf Assessment and Plan Assessment: 1. Right hip fracture status post fall. Plans for surgical intervention today 09/21/2020 2. Leukocytosis. White blood cell count elevated at 17.0 possibly reactive. Will order urinary analysis and repeat chest x-ray. Patient received 1 dose of IV Kefzol prior to surgery 3. Hypertension. Will order hydralazine when necessary 4. Hyperlipidemia. Maintained on statin. 5. History of osteoarthritis 6. History of anxiety. Patient maintained on statin Plan: 1. Right hip fracture status post fall. Plans for surgical intervention today 09/21/2020 2. Leukocytosis. White blood cell count elevated at 17.0 possibly reactive. Will order urinary analysis and repeat chest x-ray. Patient received 1 dose of IV Kefzol prior to surgery 3. Hypertension. Will order hydralazine when necessary 4. Hyperlipidemia. Maintained on statin. 5. History of osteoarthritis 6. History of anxiety. Patient maintained on statin 7. Sinus tachycardia Will give IV fluid normal saline at 50 mL an hour and monitor closely
[2020-09-22] MEDS: SODIUM CHLORIDE 0.9% 1,000 ML IV SCH (20:22)
[2020-09-22] MEDS: SENNOSIDES-DOCUSATE SODIUM 1 EACH TAB PO SCH (20:22)
[2020-09-22] MEDS: ATORVASTATIN 10 MG TAB PO SCH (20:22)
[2020-09-22] MEDS: EZETIMIBE 10 MG TAB PO SCH (20:23)
[2020-09-23] MEDS: HYDROmorphone 0.5 MG/0.5 ML SYRINGE IVP PRN (02:48)
[2020-09-23 08:33] LABS: Basophils # (A) 0.04 X 10*3/uL (0.00-0.10); Basophils % (A) 0.3 %; Eosinophils # (A) 0.04 X 10*3/uL (0.04-0.35); Eosinophils % (A) 0.3 %; HCT 21.1 % (37.2-46.3); Lymphocytes # (A) 1.73 X 10*3/uL (0.90-5.00); Lymphocytes % (A) 13.8 %; MCHC 33.2 g/dL (32.0-37.0); MCV 99.5 fL (80.0-97.0); Mean Platelet Volume 10.2 fL (9.5-12.2); Monocytes # (A) 1.19 X 10*3/uL (0.20-1.00); Monocytes % (A) 9.5 %; Neutrophils # (A) 9.46 X 10*3/uL (1.80-7.70); Neutrophils % (A) 75.6 %; Platelet Count 122 X 10*3/uL (140-440); RBC 2.12 X 10*6/uL (4.10-5.20); RDW 12.3 % (11.5-14.5); WBC 12.52 X 10*3/uL (4.50-10.00)
[2020-09-23] MEDS: LORATADINE 10 MG TAB PO SCH (08:54)
[2020-09-23] MEDS: ALPRAZolam 0.25 MG TAB PO SCH ×2 (08:54→16:32)
[2020-09-23] MEDS: RALOXIFENE 60 MG TAB PO SCH (08:55)
[2020-09-23] MEDS: CHOLECALCIFEROL 25 MCG (1000 IU) TABLET PO SCH (08:55)
[2020-09-23] MEDS: RIVAROXABAN 10 MG TAB PO SCH (08:55)
[2020-09-23] MEDS: VIT A,C & E-LUTEIN-MINERALS 1 EACH TAB PO SCH (08:55)
[2020-09-23] MEDS ORDERED: traMADol 50 MG TAB PO PRN (09:15)
[2020-09-23] MEDS: traMADol 50 MG TAB PO PRN ×3 (09:35→20:33)
[2020-09-23 09:39] LABS: African American GFR (CKD) 79.6 (60.0-200.0); Albumin 3.1 g/dL (3.80-4.90); Albumin/Globulin Ratio 2.21 (1.60-3.17); BUN/Creat Ratio 27.5 Ratio (12.00-20.00); Calcium 8.2 mg/dL (8.7-10.3); Globulin 1.4 g/dL (1.6-3.3); Non-African American GFR(CKD) 68.7 (60.0-200.0); Potassium 4.2 mmol/L (3.5-5.5); Total Bilirubin 0.5 mg/dL (0.3-1.2); Total Protein 4.5 g/dL (6.2-8.2)
--- NOTE | 2020-09-23 11:58 | P.PN ---
Subjective Progress Note Date: 09/23/20 This is an 84-year-old female with status post closed reduction and intramedullary nailing of the right hip. This is postoperative day #2. Patient is seen and evaluated at bedside today with Dr. Josep Nayak. Patient states that she has some soreness in the ankle today. Patient denies any new complaints today. Objective - Vital Signs Vital signs: Vital Signs Temp 98.5 F 09/23/20 02:33 Pulse 109 H 09/23/20 02:33 Resp 18 09/23/20 02:33 BP 139/73 09/23/20 02:33 Pulse Ox 94 L 09/23/20 02:33 Intake & Output 09/22/20 09/23/20 09/23/20 18:59 06:59 18:59 Intake Total 708 Balance 708 Intake: Oral 708 Other: Voiding Method Bedpan # Voids 1 3 - Exam On exam patient is sitting in a chair in no acute distress. Patient is alert and oriented x3. Dressing is clean, dry and intact. No drainage. No erythema. Calf is soft and nontender to palpation. Sensation intact. Patient has full range of motion of the foot and ankle. Neurovascular status and circulatory status are intact. - Labs CBC & Chem 7: 09/23/20 05:53 09/23/20 05:53 Labs: Abnormal Lab Results - Last 24 Hours (Table) 09/22/20 09/23/20 Range/Units 06:09 05:53 WBC 13.86 H 12.52 H (4.50-10.00) X 10*3/uL RBC 2.56 L 2.12 L (4.10-5.20) X 10*6/uL Hgb 8.5 L 7.0 L (12.0-15.0) g/dL Hct 26.0 L 21.1 L (37.2-46.3) % MCV 101.6 H 99.5 H (80.0-97.0) fL MCH 33.2 H 33.0 H (27.0-32.0) pg Plt Count 122 L (140-440) X 10*3/uL Immature Gran # 0.05 H 0.06 H (0.00-0.04) X 10*3/uL Neutrophils # 10.94 H 9.46 H (1.80-7.70) X 10*3/uL Monocytes # 1.55 H 1.19 H (0.20-1.00) X 10*3/uL Eosinophils # 0 L (0.04-0.35) X 10*3/uL Assessment and Plan (1) Closed right hip fracture Current Visit: Yes Status: Acute Code(s): S72.001A - FRACTURE OF UNSP PART OF NECK OF RIGHT FEMUR, INIT SNOMED Code(s): 422831440 Plan: 1.Toe-touch weightbearing to the right lower extremity. X-rays of the right tib ia/fibula are reviewed and are negative for and fracture or dislocation. 2. Xarelto for DVT prophylaxis. 3. Physical therapy for mobilization. 4. Appreciate input from medicine. 5. Continue routine postoperative care and pain control. 6. Daily dressing changes. 7. Planning for discharge to rehab or home with homecare in the next 24-48 hours.
[2020-09-23] MEDS: SODIUM CHLORIDE 0.9% 1,000 ML IV SCH (15:27)
--- NOTE | 2020-09-23 19:39 | P.PN ---
Subjective Progress Note Date: 09/23/20 This is an 84-year-old female patient who presented to the ER after sustaining a fall to her right hip. Patient reports that she was going into [facility] to receive her first dose of the COVID vaccine and lost her balance while stepping out of the car onto the sidewalk. Patient's daughter is at bedside and was there during incident. Patient denies hitting her head or any other injuries. Femur x-ray completed showing right hip fracture. Tibia-fibula x-ray completed showing no fracture or dislocation. Patient has past medical history of hyperlipidemia osteoarthritis and chronic back pain. white blood cell count 17.0. Patient denies any acute complaints denies any recent illness including fever, shortness of breath, cough, nausea, vomiting, diarrhea or urinary burning or frequency. At this time patient is admitted to orthopedic services and planning for surgical intervention today 09/21/2020. Due to weight blood cell count will order repeat chest x-ray and urinary analysis repeat labs. Patient also having elevated blood pressure will order hydralazine when necessary. Patient denies any significant cardiac history. Patient denies [place], irregular heart rate, congestive heart failure or blood clots. At this time patient is resting comfortably in bed patient denies any chest pain or shortness of breath. Patient denies nausea vomiting or diarrhea. Patient denies any urinary burning or frequency On 09/22/2020 patient was seen and examined on the medical floor she is alert a nd oriented 3 in no apparent distress she was having tachycardia with a heart rate of 125 EKG was done and revealed normal sinus rhythm with tachycardia at the heart rate of 101 at this point will start IV fluid normal saline at 50 mL an hour and monitor closely patient underwent surgery yesterday and is doing well otherwise On 09/23/2020 patient was seen and examined on the medical floor she is alert and oriented 3 in no distress she is still having some tachycardia today hemoglobin dropped down to 7 Will monitor closely and recheck hemoglobin this afternoon if needed patient will be given red blood cell transfusion. Pain in the hip area is well tolerated patient continues to have tachycardia Will consult cardiology in that regard, patient has evidence of UTI and was started on IV Rocephin 1 g every 24 hours Objective - Vital Signs Vital signs: Vital Signs Temp 98.5 F 09/23/20 02:33 Pulse 109 H 03/09/21 02:33 Resp 18 09/23/20 02:33 BP 139/73 09/23/20 02:33 Pulse Ox 94 L 09/23/20 02:33 Intake & Output 09/22/20 09/23/20 09/23/20 18:59 06:59 18:59 Intake Total 708 Balance 708 Intake: Oral 708 Other: Voiding Method Bedpan Bedside Commode Diaper Incontinent # Voids 1 3 - Exam In general patient is alert and oriented 3 in no distress Head normocephalic and atraumatic Neck supple no JVD no goiter Lungs clear to auscultation bilaterally no wheezing or crackles Heart regular rate and rhythm S1-S2, no rub or gallop Abdomen is soft nontender nondistended positive bowel sounds no hepatosplenomegaly Extremities no edema no cyanosis or clubbing Neuro no gross focal neurological deficit - Labs CBC & Chem 7: 09/23/20 05:53 09/23/20 05:53 Labs: Abnormal Lab Results - Last 24 Hours (Table) 09/22/20 09/23/20 09/23/20 Range/Units 06:09 05:53 05:53 WBC 13.86 H 12.52 H (4.50-10.00) X 10*3/uL RBC 2.56 L 2.12 L (4.10-5.20) X 10*6/uL Hgb 8.5 L 7.0 L (12.0-15.0) g/dL Hct 26.0 L 21.1 L (37.2-46.3) % MCV 101.6 H 99.5 H (80.0-97.0) fL MCH 33.2 H 33.0 H (27.0-32.0) pg Plt Count 122 L (140-440) X 10*3/uL Immature Gran # 0.05 H 0.06 H (0.00-0.04) X 10*3/uL Neutrophils # 10.94 H 9.46 H (1.80-7.70) X 10*3/uL Monocytes # 1.55 H 1.19 H (0.20-1.00) X 10*3/uL Eosinophils # 0 L (0.04-0.35) X 10*3/uL BUN/Creatinine Ratio 27.50 H (12.00-20.00) Ratio Calcium 8.2 L (8.7-10.3) mg/dL Total Protein 4.5 L (6.2-8.2) g/dL Albumin 3.10 L (3.80-4.90) g/dL Globulin 1.4 L (1.6-3.3) g/dL Assessment and Plan Plan: 1. Right hip fracture status post fall. Plans for surgical intervention today 09/21/2020 2. Leukocytosis. White blood cell count elevated at 17.0 possibly reactive. Will order urinary analysis and repeat chest x-ray. Patient received 1 dose of IV Kefzol prior to surgery 3. Hypertension. Will order hydralazine when necessary 4. Hyperlipidemia. Maintained on statin. 5. History of osteoarthritis 6. History of anxiety. Patient maintained on statin 7. Sinus tachycardia Will give IV fluid normal saline at 50 mL an hour and monitor closely 8. Urinary tract infection started on IV Rocephin
[2020-09-23] MEDS: EZETIMIBE 10 MG TAB PO SCH (20:34)
[2020-09-23] MEDS: ATORVASTATIN 10 MG TAB PO SCH (20:34)
[2020-09-23] MEDS: SENNOSIDES-DOCUSATE SODIUM 1 EACH TAB PO SCH (20:34)
[2020-09-23 20:55] LABS: Basophils % (A) 0 %; Eosinophils # (A) 0.1 k/uL (0-0.7); Eosinophils % (A) 1 %; HCT 20.9 % (34.0-46.0); Lymphocytes # (A) 1.4 k/uL (1.0-4.8); Lymphocytes % (A) 11 %; MCH 33.3 pg (25.0-35.0); MCHC 34.2 g/dL (31.0-37.0); MCV 97.5 fL (80.0-100.0); Mean Platelet Volume 7.2; Monocytes # (A) 0.7 k/uL (0-1.0); Monocytes % (A) 6 %; Neutrophils # (A) 9.9 k/uL (1.3-7.7); Neutrophils % (A) 81 %; Platelet Count 164 k/uL (150-450); RBC 2.15 m/uL (3.80-5.40); RDW 13.1 % (11.5-15.5); WBC 12.2 k/uL (3.8-10.6)
[2020-09-23 20:57] LABS: HGB 7.2 gm/dL (11.4-16.0)
--- NOTE | 2020-09-24 08:13 | P.DS ---
Providers Date of admission: 09/20/20 16:22 Expected date of discharge: 09/24/20 Attending physician: Josep Nayak Consults: 09/20/20 16:18 Consult Physician Routine Consulting Provider: Boyd Reeves Consult Reason/Comments: medical clearance Do you want consulting provider notified?: Yes 09/23/20 19:39 Consult Physician Routine Consulting Provider: Lelo Ruiz Consult Reason/Comments: Tachycardia Do you want consulting provider notified?: Yes Primary care physician: Boyd Reeves - Discharge Diagnosis(es) (1) Closed right hip fracture Current Visit: Yes Status: Acute Hospital Course: This is an 84-year-old female who sustained a fracture of her right hip on 09/20/2020. The patient presented for evaluation in the emergency room. After discussion and consideration patient elects to proceed with closed reduction and intramedullary nailing of the right hip. The patient is seen preoperatively by Dr. Nayak and medically cleared for surgery by internal medicine. Patient is admitted to [facility] on 09/20/2020 and closed reduction and intramedullary nailing of the right hip is performed on 09/21/2020. The procedure is performed without complication or sequelae. The patient is doing well postoperatively. Labs and vital signs are stable on day of discharge. On day of discharge patient's hip incision is healing well. There is minimal erythema. There is no drainage noted at this time. There is minimal soft tissue swelling to the hip and thigh. Patient has full foot and ankle motion without difficulty or pain. Calf is soft and nontender to palpation. Neurovascular status to the right lower extremity is intact. Patient is discharged to rehab in good condition. Opioid start talking form is reviewed and signed. Please see med rec for accurate list of home medications. Plan - Discharge Summary Discharge Rx Participant: No New Discharge Prescriptions: No Action Vit C/E/Zn/Coppr/Lutein/Zeaxan [Preservision Areds 2 Softgel] 1 tab PO DAILY Ezetimibe/Simvastatin [Vytorin 10-20 mg] 1 tab PO HS Multivit-Min/Iron/Folic/Lutein [Centrum Silver Women Tablet] 1 tab PO DAILY Loratadine [Claritin] 10 mg PO DAILY Acetaminophen Tab [Tylenol] 500 mg PO Q8H PRN PRN Reason: Fever And/ Or Pain Raloxifene HCl 60 mg PO DAILY Cholecalciferol [Vitamin D3 (25 Mcg = 1000 Iu)] 25 mcg PO DAILY Aspirin EC [Ecotrin Low Dose] 81 mg PO DAILY ALPRAZolam [Xanax] 0.125 mg PO BID@0900,1700 Discharge Medication List ALPRAZolam [Xanax] 0.125 mg PO BID@0900,1700 09/20/20 [History] Acetaminophen Tab [Tylenol] 500 mg PO Q8H PRN 09/20/20 [History] Aspirin EC [Ecotrin Low Dose] 81 mg PO DAILY 09/20/20 [History] Cholecalciferol [Vitamin D3 (25 Mcg = 1000 Iu)] 25 mcg PO DAILY 09/20/20 [History] Ezetimibe/Simvastatin [Vytorin 10-20 mg] 1 tab PO HS 09/20/20 [History] Loratadine [Claritin] 10 mg PO DAILY 09/20/20 [History] Multivit-Min/Iron/Folic/Lutein [Centrum Silver Women Tablet] 1 tab PO DAILY 09/20/20 [History] Raloxifene HCl 60 mg PO DAILY 09/20/20 [History] Vit C/E/Zn/Coppr/Lutein/Zeaxan [Preservision Areds 2 Softgel] 1 tab PO DAILY 09/20/20 [History] Follow up Appointment(s)/Referral(s): Alexia Noonan, [NON-STAFF] - As Needed Boyd Reeves MD [Primary Care Provider] - 1-2 days [facility] Visiting Nurse, [NON-STAFF] - 1 Week
[2020-09-24] MEDS: CHOLECALCIFEROL 25 MCG (1000 IU) TABLET PO SCH (08:53)
[2020-09-24] MEDS: RALOXIFENE 60 MG TAB PO SCH (08:53)
[2020-09-24] MEDS: RIVAROXABAN 10 MG TAB PO SCH (08:53)
[2020-09-24] MEDS: LORATADINE 10 MG TAB PO SCH (08:53)
[2020-09-24] MEDS: VIT A,C & E-LUTEIN-MINERALS 1 EACH TAB PO SCH (08:53)
[2020-09-24] MEDS: ALPRAZolam 0.25 MG TAB PO SCH ×2 (08:53→16:57)
[2020-09-24] MEDS ORDERED: SODIUM FERRIC GLUCONAT-SUCROSE 125 MG in SODIUM CHLORIDE 0.9% 100 ML IVPB ONE (10:00)
--- NOTE | 2020-09-24 10:11 | P.CRDCN ---
History of Present Illness History of present illness: HISTORY OF PRESENTING ILLNESS This is a pleasant 84-year-old patient female past medical history significant for hyperlipidemia, osteoarthritis. She does not follow with a pbx operator We have been asked to see in consultation for postoperative tachycardia. Patient experienced a mechanical fall on 09/20/2020, patient was found to have a right hip fracture and underwent closed reduction and nailing of the right hip on 09/22/19 with orthopedics. On admission patient's EKG show sinus bradycardia HR 57. On 09/22/20, Patient was found to be tachycardic, EKG showed HR 101, sinus tachycardia no significant ST- T wave abnormalities. Patient has not been on the monitoring coordinator to review telemetry. Documented HR high 125 09/22/20. She was started on IVF and found to have a UTI and started on antibiotics. Patient also anemic with Hgb downtrending post op from 11.8-->8.6-->7.0. Documented HR on -09/24/2020 have been 90s-110s. Patient is seen and examined at bedside, resting comfortably no apparent distress. She denies chest pain, palpitations, lightheadedness, dizziness, weakness, or syncope. She states after receiving pain medication she does at times feel lightheaded when standing up. She states she is always a little anxious and worry feeling of being in the hospital. Patient denies history of Diabetes, Stroke, HTN, UT, Hyperlipidemia. She denies smoking or alcohol use. She states her plan is to go to Rehab after discharge. Vital signs blood pressure 116/64 heart rate 102, 95% on room air temp 99.5 DIAGNOSTICS Telemetry tracings- patient not on bedside telemetry. Chest xray patient is rotated- questionable density in the left upper lobe- may be related to technique Home cardiac medications: ASA 81 mg daily Current hospital cardiac medications include Xarelto 10 mg daily- for DVT prophylaxis added by ortho, atorvastatin 10mg nightly, aspirin 81 mg daily. REVIEW OF SYSTEMS At the time of my exam: CONSTITUTIONAL: Denies fever or chills. CARDIOVASCULAR: Denies chest pain, shortness of breath, orthopnea, PND or palpitations. RESPIRATORY: Denies cough. GASTROINTESTINAL: Denies abdominal pain, diarrhea, constipation, nausea or vomiting. MUSCULOSKELETAL: Denies myalgias. NEUROLOGIC: Denies numbness, tingling, headache or weakness. ENDOCRINE: Denies fatigue, weight change, polydipsia or polyurina. GENITOURINARY: Denies burning, hematuria or urgency with micturation. HEMATOLOGIC: Denies history of anemia or bleeding. PHYSICAL EXAMINATION CONSTITUTIONAL: No apparent distress. HEENT: Head is normocephalic. Pupils are equal, round. Sclerae anicteric. Mucous membranes of the mouth are moist. No JVD. No carotid bruit. CHEST EXAMINATION: Lungs are clear to auscultation. No chest wall tenderness is noted on palpation or with deep breathing. HEART EXAMINATION: Tachycardic. S1, S2 heard. Difficulty in identifying heart murmur due to tachycardia. No gallops or rub. ABDOMEN: Soft, nontender. Positive bowel sounds. EXTREMITIES: 2+ peripheral pulses, no lower extremity edema and no calf tenderness. SKIN: Right hip NEUROLOGIC EXAMINATION: Patient is awake, alert and oriented x3. ASSESSMENT -History of hyperlipidemia -Right hip fracture s/p closed reduction and nailing of the right hip -Sinus tachycardia post operatively- most likely related to post operative dehydration vs anemia vs UTI. PLAN -Will obtain 2D Echo, place patient on monitoring coordinator. -Will check TSH- however unlikely abnormal with patient being bradycardia/normal sinus rhythm when admitted and prior to surgery. -If not acute changes on Echo, ok to discharge from a cardiac perspective. Nurse Practitioner note has been reviewed, I agree with a documented findings and plan of care. Patient was seen and examined. Past Medical History Past Medical History: Hyperlipidemia, Osteoarthritis (OA) Additional Past Medical History / Comment(s): chronic back pain History of Any Multi-Drug Resistant Organisms: None Reported Past Surgical History: No Surgical Hx Reported Additional Past Surgical History / Comment(s): Cataract bilat removed. Past Anesthesia/Blood Transfusion Reactions: No Reported Reaction Past Psychological History: Anxiety Smoking Status: Never smoker Past Alcohol Use History: None Reported Past Drug Use History: None Reported - Past Family History Mother Additional Family Medical History / Comment(s): Macular degeneration Father Family Medical History: Renal Disease Additional Family Medical History / Comment(s): A kidney removed. Medications and Allergies Home Medications Medication Instructions Recorded Confirmed Type ALPRAZolam [Xanax] 0.125 mg PO BID@0900,1700 09/20/20 09/20/20 History Acetaminophen Tab [Tylenol] 500 mg PO Q8H PRN 09/20/20 09/20/20 History Aspirin EC [Ecotrin Low Dose] 81 mg PO DAILY 09/20/20 09/20/20 History Cholecalciferol [Vitamin D3 (25 25 mcg PO DAILY 09/20/20 09/20/20 History Mcg = 1000 Iu)] Ezetimibe/Simvastatin [Vytorin 1 tab PO HS 09/20/20 09/20/20 History 10-20 mg] Loratadine [Claritin] 10 mg PO DAILY 09/20/20 09/20/20 History Multivit-Min/Iron/Folic/Lutein 1 tab PO DAILY 09/20/20 09/20/20 History [Centrum Silver Women Tablet] Raloxifene HCl 60 mg PO DAILY 09/20/20 09/20/20 History Vit C/E/Zn/Coppr/Lutein/Zeaxan 1 tab PO DAILY 09/20/20 09/20/20 History [Preservision Areds 2 Softgel] Rivaroxaban [Xarelto] 10 mg PO DAILY #30 tab 09/24/20 Rx Sennosides [Senokot] 2 tab PO DAILY PRN #60 tablet 09/24/20 Rx traMADol HCl [Ultram] 1 - 2 tab PO Q6H PRN #30 tab 09/24/20 Rx Allergies Allergy/AdvReac Type Severity Reaction Status Date / Time Sulfa (Sulfonamide Allergy Anaphylaxis Verified 09/20/20 16:49 Antibiotics) Physical Exam Vitals: Vital Signs Temp Pulse Resp BP Pulse Ox 09/24/20 08:00 99.5 F 102 H 16 116/64 95 09/24/20 02:05 99.6 F 95 16 133/62 96 09/23/20 20:45 98.8 F 107 H 20 137/75 95 09/23/20 15:06 98.6 F 111 H 20 120/66 95 Intake and Output 09/23/20 09/24/20 09/24/20 22:59 06:59 14:59 Other: Voiding Method Bedside Commode Diaper Incontinent # Voids 1 Results 09/23/20 20:07 09/23/20 05:53 Cardiac Enzymes 09/23/20 Range/Units 05:53 AST 35 (13-35) U/L CBC 09/23/20 Range/Units 20:07 WBC 12.2 H (3.8-10.6) k/uL RBC 2.15 L (3.80-5.40) m/uL Hgb 7.2 L D (11.4-16.0) gm/dL Hct 20.9 L (34.0-46.0) % Plt Count 164 (150-450) k/uL Comprehensive Metabolic Panel 09/23/20 Range/Units 05:53 Sodium 138 (135-145) mmol/L Potassium 4.2 (3.5-5.5) mmol/L Chloride 107 (96-109) mmol/L Carbon Dioxide 26.0 (21.6-31.8) mmol/L BUN 22.0 (9.0-27.0) mg/dL Creatinine 0.8 (0.6-1.5) mg/dL Glucose 98 (70-110) mg/dL Calcium 8.2 L (8.7-10.3) mg/dL AST 35 (13-35) U/L ALT 17 (8-44) U/L Alkaline Phosphatase 42 (41-126) U/L Total Protein 4.5 L (6.2-8.2) g/dL Albumin 3.10 L (3.80-4.90) g/dL Current Medications Generic Name Dose Route Start Last Admin Trade Name Freq PRN Reason Stop Dose Admin Acetaminophen 650 mg 09/20/20 16:17 Acetaminophen Tab 325 Mg Tab PO Q6HR PRN Mild Pain or Fever > 100.5 Alprazolam 0.125 mg 09/21/20 17:00 09/23/20 16:32 Alprazolam 0.25 Mg Tab PO 0.125 mg BID@0900,1700 ROSALIND Administration Atorvastatin Calcium 10 mg 09/21/20 21:00 09/23/20 20:34 Atorvastatin 10 Mg Tab PO 10 mg HS ROSALIND Administration Cholecalciferol 25 mcg 09/22/20 09:00 09/23/20 08:55 Cholecalciferol 25 Mcg (1000 Iu) Tablet PO 25 mcg DAILY ROSALIND Administration Ezetimibe 10 mg 09/21/20 21:00 09/23/20 20:34 Ezetimibe 10 Mg Tab PO 10 mg HS ROSALIND Administration Hydralazine HCl 10 mg 09/21/20 10:14 Hydralazine Hcl 20 Mg/Ml 1 Ml Vial IVP Q6HR PRN Blood Pressure - High Hydromorphone HCl 0.5 mg 09/20/20 16:17 09/23/20 02:48 Hydromorphone 0.5 Mg/0.5 Ml Syringe IVP 0.5 mg Q3HR PRN Administration Moderate Pain Hydromorphone HCl 1 mg 09/20/20 16:17 09/22/20 04:59 Hydromorphone 1 Mg/Ml 1 Ml Syringe IVP 1 mg Q3HR PRN Administration Severe Pain Hydroxyzine Pamoate 25 mg 09/21/20 15:52 Hydroxyzine Pamoate 25 Mg Cap PO Q4HR PRN Nausea, Anxiety, Pain Control Sodium Chloride 1,000 mls @ 50 mls/hr 09/22/20 20:15 09/23/20 15:27 Saline 0.9% IV 50 mls/hr .Q20H ROSALIND Administration Ceftriaxone Sodium 1 gm/ 50 mls @ 100 mls/hr 09/23/20 10:45 09/23/20 11:02 Sodium Chloride IVPB 100 mls/hr Q24HR ROSALIND Administration Loratadine 10 mg 09/22/20 09:00 09/23/20 08:54 Loratadine 10 Mg Tab PO 10 mg DAILY ROSALIND Administration Magnesium Hydroxide 2,400 mg 09/21/20 15:52 Magnesium Hydroxide 2,400 Mg/10 Ml Cup PO DAILY PRN Constipation Multivitamins/Minerals 1 each 09/22/20 09:00 09/23/20 08:55 Vit A,C & C-Eybjcb-Cvsugwff 1 Each Tab PO 1 each DAILY ROSALIND Administration Naloxone HCl 0.2 mg 09/20/20 16:17 Naloxone 0.4 Mg/Ml 1 Ml Vial IV Q2M PRN Opioid Reversal Ondansetron HCl 4 mg 09/21/20 15:52 Ondansetron 4 Mg/2 Ml Vial IVP DAILY PRN Nausea And Vomiting Raloxifene HCl 60 mg 09/22/20 09:00 09/23/20 08:55 Raloxifene 60 Mg Tab PO 60 mg DAILY ROSALIND Administration Rivaroxaban 10 mg 09/22/20 09:00 09/23/20 08:55 Rivaroxaban 10 Mg Tab PO 10 mg DAILY ROSALIND Administration Senna/Docusate Sodium 2 each 09/21/20 21:00 09/23/20 20:34 Sennosides-Docusate Sodium 1 Each Tab PO 2 each HS ROSALIND Administration Tramadol HCl 50 mg 09/23/20 09:15 09/23/20 20:33 Tramadol 50 Mg Tab PO 50 mg Q6H PRN Administration Pain Scale 1 to 5 Tramadol HCl 100 mg 09/23/20 09:15 Tramadol 50 Mg Tab PO QID PRN Pain Scale 6 to 10 Intake and Output 09/23/20 09/24/20 09/24/20 22:59 06:59 14:59 Other: Voiding Method Bedside Commode Diaper Incontinent # Voids 1 09/23/20 20:07 09/23/20 05:53
[2020-09-24] MEDS: SODIUM CHLORIDE 0.9% 1,000 ML IV SCH (10:26)
[2020-09-24 10:52] LABS: African American GFR (CKD) 93.5 (60.0-200.0); Albumin 3.4 g/dL (3.80-4.90); Albumin/Globulin Ratio 2.43 (1.60-3.17); Anion Gap 8.8 mmol/L (4.00-12.00); BUN/Creat Ratio 27.14 Ratio (12.00-20.00); Calcium 8.4 mg/dL (8.7-10.3); Carbon Dioxide 26.2 mmol/L (21.6-31.8); Globulin 1.4 g/dL (1.6-3.3); Non-African American GFR(CKD) 80.7 (60.0-200.0); Potassium 3.9 mmol/L (3.5-5.5); Total Bilirubin 0.6 mg/dL (0.3-1.2); Total Protein 4.8 g/dL (6.2-8.2)
[2020-09-24 10:57] LABS: Basophils # (A) 0.03 X 10*3/uL (0.00-0.10); Basophils % (A) 0.2 %; Eosinophils # (A) 0.14 X 10*3/uL (0.04-0.35); Eosinophils % (A) 1.2 %; HCT 20.6 % (37.2-46.3); HGB 6.7 g/dL (12.0-15.0); Lymphocytes # (A) 2.21 X 10*3/uL (0.90-5.00); Lymphocytes % (A) 18.4 %; MCH 32.8 pg (27.0-32.0); MCHC 32.5 g/dL (32.0-37.0); Mean Platelet Volume 10.4 fL (9.5-12.2); Monocytes # (A) 0.98 X 10*3/uL (0.20-1.00); Monocytes % (A) 8.1 %; Neutrophils # (A) 8.61 X 10*3/uL (1.80-7.70); Neutrophils % (A) 71.5 %; Platelet Count 151 X 10*3/uL (140-440); RBC 2.04 X 10*6/uL (4.10-5.20); RDW 12.4 % (11.5-14.5); WBC 12.04 X 10*3/uL (4.50-10.00)
--- NOTE | 2020-09-24 13:31 | ECHOF ---
Referral Reason:tachycardia MEASUREMENTS -------- HEIGHT: 157.5 cm WEIGHT: 59.0 kg BP: 116/64 RVIDd: 2.3 cm (< 3.3) IVSd: 1.7 cm (0.6 - 1.1) LVIDd: 2.0 cm (3.9 - 5.3) LVPWd: 1.7 cm (0.6 - 1.1) IVSs: 2.0 cm LVIDs: 1.0 cm LVPWs: 1.8 cm LAESV Index (A-L): 19.56 ml/m Ao Diam: 2.9 cm (2.0 - 3.7) AV Cusp: 1.9 cm (1.5 - 2.6) MV E Brady: 0.96 m/s MV DecT: 137 ms MV A Brady: 1.00 m/s MV E/A Ratio: 0.96 AV maxP.32 mmHg AV maxP.32 mmHg AV meanP.54 mmHg AR PHT: 403 ms RAP: 5.00 mmHg RVSP: 39.83 mmHg FINDINGS -------- Sinus rhythm. This was a technically adequate study. The left ventricular size is normal. There is severe concentric left ventricular hypertrophy. Ove rall left ventricular systolic function is normal with, an EF between 60 - 65 %. Moderate UDAY with peak LVOT gradient of 35.57mmHg. LVOT Obstruction The right ventricle is normal in size. Normal LA size by volume 22+/-6 ml/m2. The right atrial size is normal. Interatrial and interventricular septum intact. The aortic valve is trileaflet and appears structurally normal. There is [id number] aortic re gurgitation. There is mild aortic stenosis present. Peak/mean gradient across the Aortic Valve is 22.32mmHg / 12.54mmHg. Mild mitral annular calcification present. Moderate mitral regurgitation is present. The tricuspid valve appears structurally normal. Mild tricuspid regurgitation present. Right vent ricular systolic pressure is normal at < 35 mmHg. The right ventricular systolic pressure, as measu red by Doppler, is 39.83mmHg. The pulmonic valve was not well visualized. Trace/mild (physiologic) pulmonic regurgitation. The aortic root size is normal. IVC Not well visulized. There is no pericardial effusion. CONCLUSIONS -------- 1. There is severe concentric left ventricular hypertrophy. 2. Overall left ventricular systolic function is normal with, an EF between 60 - 65 %. 3. Moderate UDAY with peak LVOT gradient of 35.57mmHg. 4. LVOT Obstruction 5. Normal LA size by volume 22+/-6 ml/m2. 6. There is [id number]-[id number] aortic regurgitation. 7. There is mild aortic stenosis present. 8. Peak/mean gradient across the Aortic Valve is 22.32mmHg / 12.54mmHg. 9. Mild mitral annular calcification present. 10. Moderate mitral regurgitation is present. 11. Mild tricuspid regurgitation present. 12. Trace/mild (physiologic) pulmonic regurgitation. MATERIAL HANDLING SUPERVISOR: Luci Bermudez RDCS
--- NOTE | 2020-09-24 15:04 | P.PN ---
Subjective Progress Note Date: 09/24/20 This is an 84-year-old female patient who presented to the ER after sustaining a fall to her right hip. Patient reports that she was going into [facility] to receive her first dose of the COVID vaccine and lost her balance while stepping out of the car onto the sidewalk. Patient's daughter is at bedside and was there during incident. Patient denies hitting her head or any other injuries. Femur x-ray completed showing right hip fracture. Tibia-fibula x-ray completed showing no fracture or dislocation. Patient has past medical history of hyperlipidemia osteoarthritis and chronic back pain. white blood cell count 17.0. Patient denies any acute complaints denies any recent illness including fever, shortness of breath, cough, nausea, vomiting, diarrhea or urinary burning or frequency. At this time patient is admitted to orthopedic services and planning for surgical intervention today 09/21/2020. Due to weight blood cell count will order repeat chest x-ray and urinary analysis repeat labs. Patient also having elevated blood pressure will order hydralazine when necessary. Patient denies any significant cardiac history. Patient denies SD, irregular heart rate, congestive heart failure or blood clots. At this time patient is resting comfortably in bed patient denies any chest pain or shortness of breath. Patient denies nausea vomiting or diarrhea. Patient denies any urinary burning or frequency On 09/22/2020 patient was seen and examined on the medical floor she is alert a nd oriented 3 in no apparent distress she was having tachycardia with a heart rate of 125 EKG was done and revealed normal sinus rhythm with tachycardia at the heart rate of 101 at this point will start IV fluid normal saline at 50 mL an hour and monitor closely patient underwent surgery yesterday and is doing well otherwise On 09/23/2020 patient was seen and examined on the medical floor she is alert and oriented 3 in no distress she is still having some tachycardia today hemoglobin dropped down to 7 Will monitor closely and recheck hemoglobin this afternoon if needed patient will be given red blood cell transfusion. Pain in the hip area is well tolerated patient continues to have tachycardia Will consult cardiology in that regard, patient has evidence of UTI and was started on IV Rocephin 1 g every 24 hour on 09/24/2020 patient is alert and oriented 3. hemoglobin 6.7 1 unit of PRBCs ordered. Cardiology services following. 2-D echo has been ordered. plan for discharge to [facility] when medically stable. Discharge currently on hold due to anemia and cardiac workup. At this time patient denies chest pain or shortness of breath. Patient denies nausea vomiting or diarrhea. Patient denies any urinary burning or frequency Objective - Vital Signs Vital signs: Vital Signs Temp 99.5 F 09/24/20 08:00 Pulse 102 H 09/24/20 08:00 Resp 16 09/24/20 08:00 BP 116/64 09/24/20 08:00 Pulse Ox 95 09/24/20 08:00 Intake & Output 09/23/20 09/24/20 09/24/20 18:59 06:59 18:59 Intake Total 550 Balance 550 Intake: IV 550 Sodium Chloride 0.9% 1, 400 000 ml @ 50 mls/hr IV . Q20H [facility] Rx#:[id number] Sodium Ferric Gluconat- 100 Sucrose 125 mg In Sodium Chloride 0.9% 100 ml @ 100 mls/hr IVPB ONCE ONE Rx#:[id number] cefTRIAXone 1 gm In 50 Sodium Chloride 0.9% 50 ml @ 100 mls/hr IVPB Q24HR [facility] Rx#:[id number] Other: Voiding Method Bedside Commode Bedside Commode Diaper Diaper Incontinent Incontinent # Voids 1 - Exam In general patient is alert and oriented 3 in no distress Head normocephalic and atraumatic Neck supple no JVD no goiter Lungs clear to auscultation bilaterally no wheezing or crackles Heart regular rate and rhythm S1-S2, no rub or gallop Abdomen is soft nontender nondistended positive bowel sounds no hepa tosplenomegaly Extremities no edema no cyanosis or clubbing Neuro no gross focal neurological deficit - Labs CBC & Chem 7: 09/24/20 06:37 09/24/20 06:37 Labs: Abnormal Lab Results - Last 24 Hours (Table) 09/23/20 09/24/20 09/24/20 Range/Units 20:07 06:37 06:37 WBC 12.2 H 12.04 H (3.8-10.6) k/uL RBC 2.15 L 2.04 L (3.80-5.40) m/uL Hgb 7.2 L D 6.7 L* (11.4-16.0) gm/dL Hct 20.9 L 20.6 L (34.0-46.0) % MCV 101.0 H (80.0-97.0) fL MCH 32.8 H (27.0-32.0) pg Immature Gran # 0.07 H (0.00-0.04) X 10*3/uL Neutrophils # 9.9 H 8.61 H (1.3-7.7) k/uL BUN/Creatinine Ratio 27.14 H (12.00-20.00) Ratio Calcium 8.4 L (8.7-10.3) mg/dL Total Protein 4.8 L (6.2-8.2) g/dL Albumin 3.40 L (3.80-4.90) g/dL Globulin 1.4 L (1.6-3.3) g/dL Crossmatch 09/24/20 Range/Units 11:58 WBC (3.8-10.6) k/uL RBC (3.80-5.40) m/uL Hgb (11.4-16.0) gm/dL Hct (34.0-46.0) % MCV (80.0-97.0) fL MCH (27.0-32.0) pg Immature Gran # (0.00-0.04) X 10*3/uL Neutrophils # (1.3-7.7) k/uL BUN/Creatinine Ratio (12.00-20.00) Ratio Calcium (8.7-10.3) mg/dL Total Protein (6.2-8.2) g/dL Albumin (3.80-4.90) g/dL Globulin (1.6-3.3) g/dL Crossmatch See Detail Assessment and Plan Plan: 1. Right hip fracture status post fall. Plans for surgical intervention today 09/21/2020 2. Leukocytosis. White blood cell count elevated at 17.0 possibly reactive. Will order urinary analysis and repeat chest x-ray. Patient received 1 dose of IV Kefzol prior to surgery 3. Hypertension. Will order hydralazine when necessary 4. Hyperlipidemia. Maintained on statin. 5. History of osteoarthritis 6. History of anxiety. Patient maintained on statin 7. Sinus tachycardia Will give IV fluid normal saline at 50 mL an hour and monitor closely. Cardiology service is consulted 2-D echo ordered. 8. Urinary tract infection started on IV Rocephin 9. expected acute blood loss anemia secondary to surgery. Hemoglobin 6.7. 1 unit PRBCs ordered. plan for discharge to [facility] when medically stable Discharge currently on hold due to anemia and cardiac workup
[2020-09-24] MEDS: ATORVASTATIN 10 MG TAB PO SCH (19:53)
[2020-09-24] MEDS: EZETIMIBE 10 MG TAB PO SCH (19:53)
[2020-09-24] MEDS: SENNOSIDES-DOCUSATE SODIUM 1 EACH TAB PO SCH (19:53)
[2020-09-24] MEDS: traMADol 50 MG TAB PO PRN (19:54)
[2020-09-24 20:31] LABS: Magnesium 1.8 mg/dL (1.5-2.4)
[2020-09-25 07:15] VITALS: RESP 18
[2020-09-25] MEDS: ALPRAZolam 0.25 MG TAB PO SCH ×2 (07:51→15:59)
[2020-09-25] MEDS: VIT A,C & E-LUTEIN-MINERALS 1 EACH TAB PO SCH (07:52)
[2020-09-25] MEDS: RALOXIFENE 60 MG TAB PO SCH (07:52)
[2020-09-25] MEDS: RIVAROXABAN 10 MG TAB PO SCH (07:53)
[2020-09-25] MEDS: LORATADINE 10 MG TAB PO SCH (07:53)
[2020-09-25] MEDS: CHOLECALCIFEROL 25 MCG (1000 IU) TABLET PO SCH (07:53)
[2020-09-25] MEDS: SODIUM CHLORIDE 0.9% 1,000 ML IV SCH (07:54)
--- NOTE | 2020-09-25 08:44 | P.PN ---
Subjective Progress Note Date: 09/25/20 This is an 84-year-old female with status post closed reduction and intramedullary nailing of the right hip. This is postoperative day #4. Patient is seen and evaluated at bedside today. Patient states that her pain is improving. Patient did receive a blood transfusion yesterday. Patient denies any dizziness, shortness of breath, chest pain, headaches or any new complaints today. Objective - Vital Signs Vital signs: Vital Signs Temp 98.6 F 09/25/20 07:00 Pulse 81 09/25/20 07:00 Resp 18 09/25/20 07:00 BP 145/72 09/25/20 07:00 Pulse Ox 96 09/25/20 07:00 Intake & Output 09/24/20 09/25/20 09/25/20 18:59 06:59 18:59 Intake Total 860 Balance 860 Intake: IV 550 Sodium Chloride 0.9% 1, 400 000 ml @ 50 mls/hr IV . Q20H [facility] Rx#:[id number] Sodium Ferric Gluconat- 100 Sucrose 125 mg In Sodium Chloride 0.9% 100 ml @ 100 mls/hr IVPB ONCE ONE Rx#:[id number] cefTRIAXone 1 gm In 50 Sodium Chloride 0.9% 50 ml @ 100 mls/hr IVPB Q24HR [facility] Rx#:[id number] Blood Product 310 Rc As-1 Unit 310 [id number] Other: Voiding Method Bedside Commode Diaper Incontinent # Voids 2 - Exam On exam patient is sitting in a chair in no acute distress. Patient is alert and oriented x3. Dressing is clean, dry and intact. Minimal swelling. No drainage. No erythema. Calf is soft and nontender to palpation. Sensation intact. Patient has full range of motion of the foot and ankle. Neurovascular status and circulatory status are intact. - Labs CBC & Chem 7: 09/24/20 06:37 09/24/20 06:37 Labs: Abnormal Lab Results - Last 24 Hours (Table) 09/24/20 09/24/20 09/24/20 Range/Units 06:37 06:37 11:58 WBC 12.04 H (4.50-10.00) X 10*3/uL RBC 2.04 L (4.10-5.20) X 10*6/uL Hgb 6.7 L* (12.0-15.0) g/dL Hct 20.6 L (37.2-46.3) % MCV 101.0 H (80.0-97.0) fL MCH 32.8 H (27.0-32.0) pg Immature Gran # 0.07 H (0.00-0.04) X 10*3/uL Neutrophils # 8.61 H (1.80-7.70) X 10*3/uL BUN/Creatinine Ratio 27.14 H (12.00-20.00) Ratio Calcium 8.4 L (8.7-10.3) mg/dL Total Protein 4.8 L (6.2-8.2) g/dL Albumin 3.40 L (3.80-4.90) g/dL Globulin 1.4 L (1.6-3.3) g/dL Crossmatch See Detail Assessment and Plan Assessment: Closed reduction and intramedullary nailing of the right hip. (1) Closed right hip fracture Current Visit: Yes Status: Acute Code(s): S72.001A - FRACTURE OF UNSP PART OF NECK OF RIGHT FEMUR, INIT SNOMED Code(s): 130114473 Plan: 1.Toe-touch weightbearing to the right lower extremity. 2. Xarelto for DVT prophylaxis. 3. Physical therapy for mobilization. 4. Appreciate input from medicine and cardiology. 5. Continue routine postoperative care and pain control. 6. Daily dressing changes. 7. Hgb 6.7 on 09/24/2020. Patient did receive one unit of blood. Repeat labs are pending. 8. Planning for discharge to rehab when cleared by internal medicine and cardiology.
--- NOTE | 2020-09-25 10:39 | P.PN ---
Subjective This is a pleasant 84-year-old patient female past medical history significant for hyperlipidemia, osteoarthritis. 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 Patient experienced a mechanical fall on 09/20/2020, patient was found to have a right hip fracture and underwent closed reduction and nailing of the right hip on 09/22/19 with orthopedics. On admission patient's EKG show sinus bradycardia HR 57. On 09/22/20, Patient was found to be tachycardic, EKG showed HR 101, sinus tac hycardia no significant ST- T wave abnormalities. Patient has not been on the manager cardiac cath to review telemetry. Documented HR high 125 09/22/20. She was started on IVF and found to have a UTI and started on antibiotics. Patient also anemic with Hgb downtrending post op from 11.8-->8.6-->7.0. Documented HR on 09/23-09/24/2020 have been 90s-110s. Patient is seen and examined at bedside, resting comfortably no apparent distress. She denies chest pain, palpitations, lightheadedness, dizziness, weakness, or syncope. She states after receiving pain medication she does at times feel lightheaded when standing up. She states she is always a little anxious and worry feeling of being in the hospital. Cara roberto denies history of Diabetes, Stroke, HTN, OR, Hyperlipidemia. She denies smoking or alcohol use. She states her plan is to go to Rehab after discharge. 09/25/20: Patient's hemoglobin 6.7, received 1 unit of blood. Patient seen and examined this morning, resting comfortably in chair, no complaints. She denies chest pain, shortness of breath, palpitations, lightheadedness, dizziness. Vital signs blood pressure 145/72 heart rate 81, 96% on room air temp 98.6. Patient states her plan is to go to rehab after discharge Telemetry tracings patient in sinus rhythm heart rate 80-90s. 2-D echo 09/24/20EF 60-65% Current hospital cardiac medications include Xarelto 10 mg daily- for DVT proph ylaxis added by ortho, atorvastatin 10mg nightly. PHYSICAL EXAMINATION CONSTITUTIONAL: No apparent distress. HEENT: Head is normocephalic. Pupils are equal, round. Sclerae anicteric. Mucous membranes of the mouth are moist. No JVD. No carotid bruit. CHEST EXAMINATION: Lungs are clear to auscultation. No chest wall tenderness is noted on palpation or with deep breathing. HEART EXAMINATION: Tachycardic. S1, S2 heard. systolic murmur heard best at apex No gallops or rub. ABDOMEN: Soft, nontender. Positive bowel sounds. EXTREMITIES: 2+ peripheral pulses, no lower extremity edema and no calf t enderness. SKIN: Right hip incision covered in dressing NEUROLOGIC EXAMINATION: Patient is awake, alert and oriented x3. ASSESSMENT -History of hyperlipidemia -Right hip fracture s/p closed reduction and nailing of the right hip -Sinus tachycardia post operatively PLAN -Patient sinus tachycardia Most likely related to post operative dehydration vs acute blood loss anemia vs UTI and recommend medical management -From cardiac perspective, patient ok to be discharged. We will sign off at this time. Please reach out for any further concerns or questions. Nurse Practitioner note has been reviewed, I agree with a documented findings and plan of care. Patient was seen and examined. Objective - Vital Signs Vital signs: Vital Signs Temp 98.6 F 09/25/20 07:00 Pulse 81 09/25/20 07:00 Resp 18 09/25/20 07:00 BP 145/72 09/25/20 07:00 Pulse Ox 96 09/25/20 07:00 Intake & Output 09/24/20 09/25/20 09/25/20 18:59 06:59 18:59 Intake Total 860 Balance 860 Intake: IV 550 Sodium Chloride 0.9% 1, 400 000 ml @ 50 mls/hr IV . Q20H ROSALIND Rx#:[id number] Sodium Ferric Gluconat- 100 Sucrose 125 mg In Sodium Chloride 0.9% 100 ml @ 100 mls/hr IVPB ONCE ONE Rx#:[id number] cefTRIAXone 1 gm In 50 Sodium Chloride 0.9% 50 ml @ 100 mls/hr IVPB Q24HR ROSALIND Rx#:[id number] Blood Product 310 Rc As-1 Unit 310 [id number] Other: Voiding Method Bedside Commode Diaper Incontinent # Voids 2 - Labs CBC & Chem 7: 09/24/20 06:37 09/24/20 06:37 Labs: Abnormal Lab Results - Last 24 Hours (Table) 09/24/20 09/24/20 09/24/20 Range/Units 06:37 06:37 11:58 WBC 12.04 H (4.50-10.00) X 10*3/uL RBC 2.04 L (4.10-5.20) X 10*6/uL Hgb 6.7 L* (12.0-15.0) g/dL Hct 20.6 L (37.2-46.3) % MCV 101.0 H (80.0-97.0) fL MCH 32.8 H (27.0-32.0) pg Immature Gran # 0.07 H (0.00-0.04) X 10*3/uL Neutrophils # 8.61 H (1.80-7.70) X 10*3/uL BUN/Creatinine Ratio 27.14 H (12.00-20.00) Ratio Calcium 8.4 L (8.7-10.3) mg/dL Total Protein 4.8 L (6.2-8.2) g/dL Albumin 3.40 L (3.80-4.90) g/dL Globulin 1.4 L (1.6-3.3) g/dL Crossmatch See Detail
[2020-09-25 11:05] LABS: Basophils # (A) 0.06 X 10*3/uL (0.00-0.10); Basophils % (A) 0.7 %; Eosinophils # (A) 0.28 X 10*3/uL (0.04-0.35); Eosinophils % (A) 3.3 %; HCT 23.7 % (37.2-46.3); HGB 7.8 g/dL (12.0-15.0); Lymphocytes # (A) 1.57 X 10*3/uL (0.90-5.00); Lymphocytes % (A) 18.5 %; MCH 32.4 pg (27.0-32.0); MCHC 32.9 g/dL (32.0-37.0); MCV 98.3 fL (80.0-97.0); Mean Platelet Volume 9.8 fL (9.5-12.2); Monocytes # (A) 0.76 X 10*3/uL (0.20-1.00); Neutrophils # (A) 5.72 X 10*3/uL (1.80-7.70); Neutrophils % (A) 67.6 %; Platelet Count 169 X 10*3/uL (140-440); RBC 2.41 X 10*6/uL (4.10-5.20); RDW 13.9 % (11.5-14.5); WBC 8.47 X 10*3/uL (4.50-10.00)
--- NOTE | 2020-09-25 11:20 | P.DS ---
Providers Date of admission: 09/20/20 16:22 Expected date of discharge: 09/25/20 Attending physician: Josep Nayak Consults: 09/20/20 16:18 Consult Physician Routine Consulting Provider: Boyd Reeves Consult Reason/Comments: medical clearance Do you want consulting provider notified?: Yes 09/23/20 19:39 Consult Physician Routine Consulting Provider: Lelo Ruiz Consult Reason/Comments: Tachycardia Do you want consulting provider notified?: Yes Primary care physician: Boyd Reeves - Discharge Diagnosis(es) (1) Closed right hip fracture Current Visit: Yes Status: Acute Hospital Course: This is an 84-year-old female who sustained a fracture of her right hip on 09/20/2020. The patient presented for evaluation in the emergency room. After discussion and consideration patient elects to proceed with closed reduction and intramedullary nailing of the right hip. The patient is seen preoperatively by Dr. Nayak and medically cleared for surgery by internal medicine. Patient is admitted to [facility] on 09/20/2020 and closed reduction and intramedullary nailing of the right hip is performed on 09/21/2020. The procedure is performed without complication or sequelae. The patient is doing well postoperatively. Patient did receive one unit of blood during this a dmission. Patient has been evaluated by cardiology as well during this admission. Labs and vital signs are stable on day of discharge. On day of discharge patient's hip incision is healing well. There is minimal erythema. There is no drainage noted at this time. There is minimal soft tissue swelling to the hip and thigh. Patient has full foot and ankle motion without difficulty or pain. Calf is soft and nontender to palpation. Neurovascular status to the right lower extremity is intact. Patient is discharged to rehab in good condition. Opioid start talking form is reviewed and signed. Please see med rec for accurate list of home medications. Plan - Discharge Summary Discharge Rx Participant: No New Discharge Prescriptions: New Sennosides [Senokot] 2 tab PO DAILY PRN #60 tablet PRN Reason: Constipation traMADol HCl [Ultram] 1 - 2 tab PO Q6H PRN #30 tab PRN Reason: Pain Rivaroxaban [Xarelto] 10 mg PO DAILY #30 tab No Action Vit C/E/Zn/Coppr/Lutein/Zeaxan [Preservision Areds 2 Softgel] 1 tab PO DAILY Ezetimibe/Simvastatin [Vytorin 10-20 mg] 1 tab PO HS Multivit-Min/Iron/Folic/Lutein [Centrum Silver Women Tablet] 1 tab PO DAILY Loratadine [Claritin] 10 mg PO DAILY Acetaminophen Tab [Tylenol] 500 mg PO Q8H PRN PRN Reason: Fever And/ Or Pain Raloxifene HCl 60 mg PO DAILY Cholecalciferol [Vitamin D3 (25 Mcg = 1000 Iu)] 25 mcg PO DAILY Aspirin EC [Ecotrin Low Dose] 81 mg PO DAILY ALPRAZolam [Xanax] 0.125 mg PO BID@0900,1700 Discharge Medication List ALPRAZolam [Xanax] 0.125 mg PO BID@0900,1700 09/20/20 [History] Acetaminophen Tab [Tylenol] 500 mg PO Q8H PRN 09/20/20 [History] Aspirin EC [Ecotrin Low Dose] 81 mg PO DAILY 09/20/20 [History] Cholecalciferol [Vitamin D3 (25 Mcg = 1000 Iu)] 25 mcg PO DAILY 09/20/20 [History] Ezetimibe/Simvastatin [Vytorin 10-20 mg] 1 tab PO HS 09/20/20 [History] Loratadine [Claritin] 10 mg PO DAILY 09/20/20 [History] Multivit-Min/Iron/Folic/Lutein [Centrum Silver Women Tablet] 1 tab PO DAILY 09/20/20 [History] Raloxifene HCl 60 mg PO DAILY 09/20/20 [History] Vit C/E/Zn/Coppr/Lutein/Zeaxan [Preservision Areds 2 Softgel] 1 tab PO DAILY 09/20/20 [History] Rivaroxaban [Xarelto] 10 mg PO DAILY #30 tab 09/24/20 [Rx] Sennosides [Senokot] 2 tab PO DAILY PRN #60 tablet 09/24/20 [Rx] traMADol HCl [Ultram] 1 - 2 tab PO Q6H PRN #30 tab 09/24/20 [Rx] Follow up Appointment(s)/Referral(s): Alexia Noonan, [NON-STAFF] - As Needed Boyd Reeves MD [Primary Care Provider] - 1-2 days Josep Nayak DO [Doctor of Osteopathic Medicine] - 10/10/20 9:00 am [facility] Visiting Nurse, [NON-STAFF] - 1 Week Patient Instructions/Handouts: ORIF of Hip Fracture (DC) Activity/Diet/Wound Care/Special Instructions: Toe-touch weightbearing with walker. Daily dressing changes. May shower with dressing on. Please take Xarelto once daily for 30 days to help prevent blood clots. Recommend use of compression stockings daily until follow up to help prevent swelling and blood clots. May remove at night before sleeping. Please follow-up with [facility] in 2 weeks and call with any questions or concerns, . Discharge Disposition: TRANSFER TO SNF/ECF
[2020-09-25 11:41] LABS: African American GFR (CKD) 98.4 (60.0-200.0); Albumin 3.1 g/dL (3.80-4.90); Albumin/Globulin Ratio 2.07 (1.60-3.17); Anion Gap 7.9 mmol/L (4.00-12.00); BUN/Creat Ratio 28.33 Ratio (12.00-20.00); Calcium 7.9 mg/dL (8.7-10.3); Carbon Dioxide 25.1 mmol/L (21.6-31.8); Globulin 1.5 g/dL (1.6-3.3); Non-African American GFR(CKD) 84.9 (60.0-200.0); Total Bilirubin 0.8 mg/dL (0.2-1.2); Total Protein 4.6 g/dL (6.2-8.2)
--- NOTE | 2020-09-25 12:39 | CDI ---
Documentation Clarification Form Date: 09/25/2020 11:58:58 AM From: Jacqueline Levi RN CCDS Admit Date: 09/20/2020 04:22:00 PM Patient Name: Ame Ward Visit Number: [id number] Discharge Date: ATTENTION: The Clinical Documentation Specialists (CDI) and [facility] Coding Staff appreciate your assistance in clarifying documentation. Please respond to the clarification below the line at the bottom and electronically sign. The CDI & [facility] Coding staff will review the response and follow-up if needed. Please note: Queries are made part of the Legal Health Record. If you have any questions, please contact the author of this message via ITS. Dr. Josep Nayak Post-operative dehydration is documented in the Cardiology progress note 09/25. Patients Admitting Diagnosis: A closed four-part Intratrochanteric fracture of the right hip. Post-Operative Diagnosis: A closed four-part Intratrochanteric fracture of the right hip. Procedure performed: Closed reduction and intramedullary nailing of right hip. History/Risk Factors: 84-year-old female presents to the ED after a fall while walking into pharmacy. Medical History: HTN. Clinical Indicators: Expected acute blood loss anemia secondary to surgery. IM progress note 09/24. VSS on admission: 09/20 B/P 149/77; HR 71; Temp 97.7 F Oral: RR 18 SpO2 96% room air. Pulse rate: 09/21 103; 09/22 125; 09/22 105; 09/23 111; 09/24 106; 09/25 95. Hgb: 09/20 - 13.5, 09/21 11.8; 09/22 8.5; 09/23 7.0; 09/23 7.2; 09/24 - 6.7; 09/25 7.8. Treatment: 0.9NS IV 50cchr 09/22 to current. 1 Unit PRBC 09/24. Ferric Sodium Gluconate 125mg IVPB x1 09/24. In order to accurately reflect this patients severity of illness, please clarify if the Post-operative dehydration: -is a complication of surgical procedure -is an expected outcome of the surgical procedure -is related to co-morbid condition(s) please specify -Other please specify -Unable to determine (Last Revision: August 2019) MTDD
--- NOTE | 2020-09-25 12:47 | CDI ---
Documentation Clarification Form Date: 09/25/2020 12:42:10 PM From: Jacqueline Levi RN CCDS Admit Date: 09/20/2020 04:22:00 PM Patient Name: Ame Ward Visit Number: [id number] Discharge Date: ATTENTION: The Clinical Documentation Specialists (CDI) and [facility] Coding Staff appreciate your assistance in clarifying documentation. Please respond to the clarification below the line at the bottom and electronically sign. The CDI & [facility] Coding staff will review the response and follow-up if needed. Please note: Queries are made part of the Legal Health Record. If you have any questions, please contact the author of this message via ITS. Dr. Josep Nayak Sinus tachycardia post operatively is documented in the Cardiology progress note 09/25. Patients Admitting Diagnosis: A closed four-part Intratrochanteric fracture of the right hip. Post-Operative Diagnosis: A closed four-part Intratrochanteric fracture of the right hip. Procedure performed: Closed reduction and intramedullary nailing of right hip. History/Risk Factors: 84-year-old female presents to the ED after a fall while walking into pharmacy. Medical History: HTN. Clinical Indicators: Expected acute blood loss anemia secondary to surgery. IM progress note 09/24. Patient sinus tachycardia. Most likely related to post-operative dehydration vs acute blood loss anemia vs UTI. Cardiology progress note 09/25. VSS on admission: 09/20 B/P 149/77; HR 71; Temp 97.7 F Oral: RR 18 SpO2 96% room air. Pulse rate: 09/21 103; 09/22 125; 09/22 105; 09/23 111; 09/24 106; 09/25 95. Hgb: 09/20 - 13.5, 09/21 11.8; 09/22 8.5; 09/23 7.0; 09/23 7.2; 09/24 - 6.7; 09/25 7.8. Treatment: 0.9NS IV 50cchr 09/22 to current. 1 Unit PRBC 09/24. Ferric Sodium Gluconate 125mg IVPB x1 09/24. In order to accurately reflect this patients severity of illness, please clarify if the Post-operative Sinus Tachycardia: -is a complication of surgical procedure -is an expected outcome of the surgical procedure -is related to co-morbid condition(s) please specify -Other please specify -Unable to determine (Last Revision: August 2019) MTDD
[2020-09-25 15:32] VITALS: BP 138/63; PULSE 88; TEMP 98.3
--- NOTE | 2020-09-29 09:20 | CDI ---
Documentation Clarification Form Date: 09/25/2020 11:58:58 AM From: Jacqueline Levi RN CCDS Admit Date: 09/20/2020 04:22:00 PM Patient Name: Ame Ward Visit Number: [id number] Discharge Date: ATTENTION: The Clinical Documentation Specialists (CDI) and [facility] Coding Staff appreciate your assistance in clarifying documentation. Please respond to the clarification below the line at the bottom and electronically sign. The CDI & [facility] Coding staff will review the response and follow-up if needed. Please note: Queries are made part of the Legal Health Record. If you have any questions, please contact the author of this message via ITS. Dr. Josep Nayak Post-operative dehydration is documented in the Cardiology progress note 09/25. Patients Admitting Diagnosis: A closed four-part Intratrochanteric fracture of the right hip. Post-Operative Diagnosis: A closed four-part Intratrochanteric fracture of the right hip. Procedure performed: Closed reduction and intramedullary nailing of right hip. History/Risk Factors: 84-year-old female presents to the ED after a fall while walking into pharmacy. Medical History: HTN. Clinical Indicators: Expected acute blood loss anemia secondary to surgery. IM progress note 09/24. VSS on admission: 09/20 B/P 149/77; HR 71; Temp 97.7 F Oral: RR 18 SpO2 96% room air. Pulse rate: 09/21 103; 09/22 125; 09/22 105; 09/23 111; 09/24 106; 09/25 95. Hgb: 09/20 - 13.5, 09/21 11.8; 09/22 8.5; 09/23 7.0; 09/23 7.2; 09/24 - 6.7; 09/25 7.8. Treatment: 0.9NS IV 50cchr 09/22 to current. 1 Unit PRBC 09/24. Ferric Sodium Gluconate 125mg IVPB x1 09/24. In order to accurately reflect this patients severity of illness, please clarify if the Post-operative dehydration: -is a complication of surgical procedure -is an expected outcome of the surgical procedure -is related to co-morbid condition(s) please specify -Other please specify -Unable to determine (Last Revision: August 2019) Unable to determine MTDD
--- NOTE | 2020-09-29 09:21 | CDI ---
Documentation Clarification Form Date: 09/25/2020 12:42:10 PM From: Jacqueline Levi RN CCDS Admit Date: 09/20/2020 04:22:00 PM Patient Name: Ame Ward Visit Number: [id number] Discharge Date: ATTENTION: The Clinical Documentation Specialists (CDI) and [facility] Coding Staff appreciate your assistance in clarifying documentation. Please respond to the clarification below the line at the bottom and electronically sign. The CDI & [facility] Coding staff will review the response and follow-up if needed. Please note: Queries are made part of the Legal Health Record. If you have any questions, please contact the author of this message via ITS. Dr. Josep Nayak Sinus tachycardia post operatively is documented in the Cardiology progress note 09/25. Patients Admitting Diagnosis: A closed four-part Intratrochanteric fracture of the right hip. Post-Operative Diagnosis: A closed four-part Intratrochanteric fracture of the right hip. Procedure performed: Closed reduction and intramedullary nailing of right hip. History/Risk Factors: 84-year-old female presents to the ED after a fall while walking into pharmacy. Medical History: HTN. Clinical Indicators: Expected acute blood loss anemia secondary to surgery. IM progress note 09/24. Patient sinus tachycardia. Most likely related to post-operative dehydration vs acute blood loss anemia vs UTI. Cardiology progress note 09/25. VSS on admission: 09/20 B/P 149/77; HR 71; Temp 97.7 F Oral: RR 18 SpO2 96% room air. Pulse rate: 09/21 103; 09/22 125; 09/22 105; 09/23 111; 09/24 106; 09/25 95. Hgb: 09/20 - 13.5, 09/21 11.8; 09/22 8.5; 09/23 7.0; 09/23 7.2; 09/24 - 6.7; 09/25 7.8. Treatment: 0.9NS IV 50cchr 09/22 to current. 1 Unit PRBC 09/24. Ferric Sodium Gluconate 125mg IVPB x1 09/24. In order to accurately reflect this patients severity of illness, please clarify if the Post-operative Sinus Tachycardia: -is a complication of surgical procedure -is an expected outcome of the surgical procedure -is related to co-morbid condition(s) please specify -Other please specify -Unable to determine (Last Revision: August 2019) This is a question for medicine and/or cardiology MTDD
--- NOTE | 2020-09-30 13:06 | CDI ---
Documentation Clarification Form Date: 09/30/2020 12:52:14 PM From: Jacqueline Levi RN CCDS Admit Date: 09/20/2020 04:22:00 PM Patient Name: Ame Ward Visit Number: [id number] Discharge Date: 09/25/2020 04:46:00 PM ATTENTION: The Clinical Documentation Specialists (CDI) and [facility] Coding Staff appreciate your assistance in clarifying documentation. Please respond to the clarification below the line at the bottom and electronically sign. The CDI & [facility] Coding staff will review the response and follow-up if needed. Please note: Queries are made part of the Legal Health Record. If you have any questions, please contact the author of this message via ITS. Dr. Lelo Ruiz Sinus tachycardia post operatively is documented in the Cardiology progress note 09/25. Patients Admitting Diagnosis: A closed four-part Intratrochanteric fracture of the right hip. Post-Operative Diagnosis: A closed four-part Intratrochanteric fracture of the right hip. Procedure performed: Closed reduction and intramedullary nailing of right hip. History/Risk Factors: 84-year-old female presents to the ED after a fall while walking into pharmacy. Medical History: HTN. Clinical Indicators: Expected acute blood loss anemia secondary to surgery. IM progress note 09/24. Patient sinus tachycardia. Most likely related to post-operative dehydration vs acute blood loss anemia vs UTI. Cardiology progress note 09/25. VSS on admission: 09/20 B/P 149/77; HR 71; Temp 97.7 F Oral: RR 18 SpO2 96% room air. Pulse rate: 09/21 103; 09/22 125; 09/22 105; 09/23 111; 09/24 106; 09/25 95. Hgb: 09/20 - 13.5, 09/21 11.8; 09/22 8.5; 09/23 7.0; 09/23 7.2; 09/24 - 6.7; 09/25 7.8. Treatment: 0.9NS IV 50cchr 09/22 to current. 1 Unit PRBC 09/24. Ferric Sodium Gluconate 125mg IVPB x1 09/24. In order to accurately reflect this patients severity of illness, please clarify if the Post-operative Sinus Tachycardia: -is a complication of surgical procedure -is an expected outcome of the surgical procedure -is related to co-morbid condition(s) please specify -Other please specify from anemia -Unable to determine (Last Revision: August 2019) MTDD
== END 2020-09-25 16:46 | DRG 481 ==
LOC: EC 14:29 → 4SSUR 16:22
PROVIDERS: ADMIT Orthopaedic Surgery; ATTEND Orthopaedic Surgery
PROC: 0QS636Z Reposition Right Upper Femur with Intramedullary Internal Fixation Device, Percutaneous Approach (ICD-10-PCS; principal; 2020-09-21 13:00)
PROC: 30233N1 Transfusion of Nonautologous Red Blood Cells into Peripheral Vein, Percutaneous Approach (ICD-10-PCS; 2020-09-24)
DX: S72.141A Displaced intertrochanteric fracture of right femur, initial encounter for closed fracture (principal); N39.0 Urinary tract infection, site not specified; D62 Acute posthemorrhagic anemia; W01.0XXA Fall on same level from slipping, tripping and stumbling without subsequent striking against object, initial encounter; Y93.01 Activity, walking, marching and hiking; M19.90 Unspecified osteoarthritis, unspecified site; I10 Essential (primary) hypertension; E78.5 Hyperlipidemia, unspecified; F41.9 Anxiety disorder, unspecified; E86.0 Dehydration; Z79.01 Long term (current) use of anticoagulants; Z79.82 Long term (current) use of aspirin; Z79.899 Other long term (current) drug therapy; Z83.52 Family history of ear disorders; Z84.1 Family history of disorders of kidney and ureter; Z98.42 Cataract extraction status, left eye; Z98.41 Cataract extraction status, right eye; G89.29 Other chronic pain; M54.9 Dorsalgia, unspecified; Z20.822 Contact with and (suspected) exposure to COVID-19; R26.9 Unspecified abnormalities of gait and mobility; Z88.2 Allergy status to sulfonamides
CPT/HCPCS: 36410; 36415; 71045; 71046; 73502; 76937; 80053; 81001; 83735; 84443; 85025; 85610; 85730; 86850; 86900; 86901; 86920; 87635; 93005; 93306; 99285

== ENCOUNTER → 2022-04-26 | Outpatient (CLI) | payer MEDICARE, BC ==
[2022-04-26 13:23] LABS: Partial Thromboplastin Time 23.6 sec (22.0-30.0); Prothrombin Time 10.8 sec (9.0-12.0)
[2022-04-26 17:42] LABS: HCT 41.5 % (37.2-46.3); MCH 32.8 pg (27.0-32.0); MCHC 33.7 g/dL (32.0-37.0); MCV 97.2 fL (80.0-97.0); Mean Platelet Volume 10.1 fL (9.5-12.2); NRBC Per 100 WBC 0 /100 WBCS (0.0-0.0); Platelet Count 240 X 10*3/uL (140-440); RBC 4.27 X 10*6/uL (4.10-5.20); RDW 12.4 % (11.5-14.5); WBC 7.26 X 10*3/uL (4.50-10.00)
[2022-04-26 17:53] LABS: African American GFR (CKD) 68.1 (60.0-200.0); Albumin 4.6 g/dL (3.8-4.9); Albumin/Globulin Ratio 1.64 (1.60-3.17); Anion Gap 10.7 mmol/L (10.00-18.00); BUN/Creat Ratio 19.89 Ratio (12.00-20.00); Blood Urea Nitrogen 17.9 mg/dL (9.0-27.0); Calcium 9.6 mg/dL (8.7-10.3); Carbon Dioxide 23.3 mmol/L (20.0-27.5); Globulin 2.8 g/dL (1.6-3.3); Non-African American GFR(CKD) 58.7 (60.0-200.0); Total Bilirubin 0.2 mg/dL (0.30-1.20); Total Protein 7.4 g/dL (6.2-8.2)
[2022-04-26 20:21] LABS: Appearance,Urine Clear (Clear); Bilirubin,Urine Negative (Negative); Blood,Urine Negative (Negative); Color,Urine Dark Yellow (Yellow); Ketones,Urine Trace mg/dL (Negative); Nitrite,Urine Negative (Negative); Specific Gravity,Urine 1.022 (1.001-1.030); Urobilinogen,Urine 0.2 (0.2,1.0)
== END | disposition home or self-care (01) ==
LOC: LABPAT 11:31
PROVIDERS: ATTEND Orthopaedic Surgery
DX: Z01.812 Encounter for preprocedural laboratory examination (principal); M16.12 Unilateral primary osteoarthritis, left hip
CPT/HCPCS: 80053; 81003; 85027; 85610; 85730; 87070

== ENCOUNTER 2022-05-04 08:50 | Day surgery (SDC) | payer MEDICARE, BC ==
[~2022-05-04 08:50] MED LIST: ACETAMINOPHEN TAB 500 MG TAB PO PRN; DEXAMETHASONE SOD PHOSPHATE 4 MG/ML 1 ML VIAL IV ONE; GABAPENTIN 300 MG CAP PO PRN; HYDROmorphone 0.5 MG/0.5 ML SYRINGE IVP PRN; MELOXICAM 7.5 MG TAB PO PRN; ONDANSETRON 4 MG/2 ML VIAL IVP ONE; TRANEXAMIC ACID IN NACL,ISO-OS 1,000 MG in SALINE 1 100ML.BAG IVPB PRN
[2022-05-04] MEDS ORDERED: LIDOCAINE 1% (10MG/ML) FOR IV START INTRADERMA ONE (09:20)
[2022-05-04] MEDS: LACTATED RINGERS 1,000 ML IV SCH (09:20)
[2022-05-04] MEDS ORDERED: NALOXONE 0.4 MG/ML 1 ML VIAL IV PRN (09:26)
[2022-05-04] MEDS ORDERED: ONDANSETRON 4 MG/2 ML VIAL IVP PRN (09:26)
[2022-05-04] MEDS ORDERED: HYDROmorphone 0.5 MG/0.5 ML SYRINGE IVP PRN ×3 (09:26)
[2022-05-04] MEDS ORDERED: MAGNESIUM HYDROXIDE 2,400 MG/10 ML CUP PO PRN (09:26)
[2022-05-04] MEDS ORDERED: HYDROcodone/APAP 7.5-325MG 1 EACH TAB PO PRN ×2 (09:29)
[2022-05-04] MEDS ORDERED: PHENYLEPHRINE-0.9% NACL SYG 1,000 MCG/10 ML SYRINGE ONE (09:32)
[2022-05-04] MEDS ORDERED: diphenhydrAMINE 50 MG/ML 1 ML VIAL ONE (09:32)
[2022-05-04] MEDS ORDERED: PROPOFOL 10 MG/ML 20 ML VIAL IV ONE (09:32)
[2022-05-04] MEDS ORDERED: TRANEXAMIC ACID IN NACL,ISO-OS 1,000 MG/100 ML BAG ONE (09:32)
[2022-05-04] MEDS ORDERED: MIDAZOLAM 2 MG/2 ML VIAL ONE (09:32)
[2022-05-04] MEDS ORDERED: ceFAZolin 1,000 MG in SODIUM CHLORIDE 0.9% 1,000 ML IRRIGATION ONE (09:37)
[2022-05-04] MEDS ORDERED: ROPIVACAINE 5 MG/ML 30 ML VIAL MISCELLANE ONE ×2 (10:11→10:53)
--- NOTE | 2022-05-04 10:58 | P.OP ---
Date of Procedure: 05/04/22 Preoperative Diagnosis: Severe osteoarthritis left hip Postoperative Diagnosis: Severe osteoarthritis left hip Procedure(s) Performed: Left total hip arthroplasty with a direct anterior approach Implants: [employer] Polarstem standard size 5 collar [employer] R3, 3 hole hemispherical acetabular shell, 48 mm [employer] Reflection 6.5 mm cancellus screw, 20 mm, 25 mm [employer] R3, XLPE 20 acetabular liner [employer]hew Oxinium femoral head 32 m, -3 All components were press-fit. The articulation is Oxinium on polyethylene. Anesthesia: spinal Surgeon: Josep Nayak Customer Experience Leader #1: Nona Mcadams Estimated Blood Loss (ml): 200 Pathology: other (Femoral head) Condition: stable Disposition: PACU Indications for Procedure: After failure of conservative treatment we discussed the surgical and n onsurgical treatment options at length. Patient wishes to proceed with a total hip arthroplasty with a direct anterior approach. Complications specific to this procedure were discussed at length, including but not limited to infection, leg length discrepancy, dislocation, nerve injury, and fracture. Covid-19 was also discussed at length with the patient, and they are aware of the current policies and procedures. The patient was given the option of delaying surgery, but they elect to proceed knowing these risks. Patient is aware of all these complications and informed consent was obtained Operative Findings: The operative findings are consistent with severe osteoarthritis of the left hip Description of Procedure: Patient was seen and evaluated in the preoperative area and the consent was reviewed. The operative site was marked with a skin marker. The patient was then brought to the operating room and given preoperative antibiotics intravenously. 1 g of Tranexamic acid was also given intravenously. A spinal anesthetic was administered by the anesthesia department. The patient was then placed on the Clayton table with the bony prominences well-padded. The hip area was then prepped with a ChloraPrep solution and draped in the usual sterile fashion. A universal timeout was then performed, which confirmed the patient's name, surgical site, ALLERGIES, and procedure being performed on the consent. Next the incision site was located at 1 cm distal and 2 cm lateral to the anterior superior iliac spine. The skin and subcutaneous tissues were sharply incised. Incision was carefully dissected down to the fascia overlying the tensor fascia rosanna muscle. This fascia was then incised in line with the incision. Care was taken to stay laterally in order to avoid injuring the lateral femoral cutaneous nerve. Next, using blunt finger dissection, the tensor fascia rosanna muscle was dissected off its investing fascia. The muscle was then carefully retracted laterally with a cobra retractor over the lateral neck of the femur. Next, the circumflex vessels were identified and cauterized using the AquaMantis device. The anterior hip capsule was then exposed. The capsule was then opened and an inverted T fashion. Cobra retractors were then placed intracapsularly. The retractors were maintained intracapsular throughout the procedure. The proximal femur was then visualized. Fluoroscopic x-rays were then taken in order to evaluate the preoperative leg lengths. A small amount of traction was placed on the leg. The femoral neck was then osteotomized at the appropriate level above the lesser trochanter. A small wedge of bone was then removed from the remaining femoral head. Next, using a corkscrew the femoral head was removed from the acetabulum. On gross visual inspection, the femoral head had complete loss of articular cartilage and multiple periarticular osteophytes. The femoral head was then measured. Attention was then turned to the acetabulum. The acetabulum was exposed and any remaining labrum was excised. Sequential reaming of the acetabulum was performed using fluoroscopic guidance until there was a good bed of bleeding cancellus bone. When the appropriate size was reached, a trial was then placed. The position and fit of the trial was checked with fluoroscopy. The trial was then removed. Then, using fluoroscopic guidance, the final implant was impacted at 20 of anteversion and 40 of abduction, and fully seated in the acetabulum. 2 screws were then placed in the acetabulum. Again fluoroscopy was used to check position of the screws. Next, the liner was then impacted, with a 20 elevated liner located in the anterior superior quadrant. Component locking was confirmed. Attention was then directed to the femur. With the aid of the Clayton table, the femur was externally rotated to approximately 130, extended, and adducted under the opposite leg. A side hook was then placed under the proximal femur, and the side hook elevator was used to elevate the proximal femur while releasing the capsule. Retractors were then placed. A capsular release was performed, as well as a release of the conjoined tendon, which afforded excellent visualization of the proximal femur. Next, a box osteotome was used to lateralize the proximal femur. A hand heel seat fitter was then used to locate the femoral canal. Sequential broaching was then performed with appropriate size which afforded excellent fixation in the proximal femur. A trial was then placed with appropriate head and neck, and the hip was gently reduced with the aid of the Clayton table. Fluoroscopy was then used to check position of the components, as well as to evaluate the leg lengths and offset. The leg lengths and offset were measured as closely as possible to ensure stability of the hip. The hip was then gently dislocated and the trials were then removed. Final implants were then impacted and the hip was again reduced. Final fluoroscopic x-rays confirmed that the components were in anatomic position. The leg lengths and offset were measured and were found to coincide with the trial measurements. The hip was also taken through range of motion, and found to be stable. The hip was then copiously irrigated with antibiotic solution with pulsatile lavage. The hip was then irrigated with Irrisept solution. The soft tissues were then injected with a ropivacaine solution. A second dose of 1 g of Tranexamic acid was also given intravenously. The fascia was then closed with 2-0 strata fix suture. The subcutaneous tissue was closed with 3-0 Vicryl. The subcuticular tissue was closed with 3-0 strata fix suture. The skin was then closed with Exofin skin glue. After the glue and dried, and Optifoam silver impregnated dressing was applied. The patient was then transferred to the recovery room in stable condition. The assistant superintendent for curriculum JESSI Marquez was required due to the complexity of surgery, and the need for skilled surgical services tech for positioning, draping, exposure, retraction, and closure of the wound.
[2022-05-04] MEDS ORDERED: LACTATED RINGERS 1,000 ML IV ONE (11:11)
--- NOTE | 2022-05-04 11:35 | XR ---
EXAMINATION TYPE: XR Hip Limited LT DATE OF EXAM: 05/04/2022 COMPARISON: NONE HISTORY: Postop TECHNIQUE: One view submitted. FINDINGS: There is postsurgical change in near anatomic alignment. There is soft tissue edema and emphysema. IMPRESSION: 1. Postoperative change. Appears in near-anatomic alignment.
--- NOTE | 2022-05-04 13:04 | FL ---
Intraoperative/procedural fluoroscopic services were provided. Total fluoroscopy time is 38 seconds w ith a total of 3 submitted images to PACS. Please see the operative/procedural note for further detai ls.
[2022-05-04] MEDS: ACETAMINOPHEN TAB 500 MG TAB PO PRN (15:25)
--- NOTE | 2022-05-04 15:25 | P.CONS ---
History of Present Illness - Reason for Consult Consult date: 05/04/22 - History of Present Illness Ame Ward, is an 86-year-old female who was admitted to [facility] by Dr. Josep Mcguire and underwent left total hip arthroplasty, medical consultation was requested for management while hospitalized. Patient was seen and examined on the medical floor postoperatively she is alert and oriented 3 in no apparent distress she is complaining of mild pain in the left hip area, otherwise she denies any complaints, there is no fever or chills no headache or dizziness no chest pain no shortness of breath no cough no nausea or vomiting no abdominal pain no diarrhea no blood in the stools no burning with urination no frequency or urgency and no hematuria. Patient was able to ambulate from her bed to the bathroom. Past Medical History Past Medical History: Eye Disorder, Hyperlipidemia, Osteoarthritis (OA) Additional Past Medical History / Comment(s): chronic back pain, osteoporosis, macular degeneration History of Any Multi-Drug Resistant Organisms: None Reported Past Surgical History: Orthopedic Surgery Additional Past Surgical History / Comment(s): Cataracts bilat removed. ORIF right hip September 2020 Past Anesthesia/Blood Transfusion Reactions: No Reported Reaction Additional Past Anesthesia/Blood Transfusion Reaction / Comm: no blood transfusion reaction Past Psychological History: Anxiety Smoking Status: Never smoker Past Alcohol Use History: None Reported Past Drug Use History: None Reported - Past Family History Mother Additional Family Medical History / Comment(s): Macular degeneration Father Family Medical History: Renal Disease Additional Family Medical History / Comment(s): A kidney removed. Medications and Allergies Home Medications Medication Instructions Recorded Confirmed Type ALPRAZolam [Xanax] 0.125 mg PO BID@0900,1700 09/20/20 05/03/22 History Acetaminophen Tab [Tylenol] 500 mg PO Q8H PRN 09/20/20 05/03/22 History Aspirin EC [Ecotrin Low Dose] 81 mg PO DAILY 09/20/20 05/03/22 History Cholecalciferol [Vitamin D3 (25 50 mcg PO DAILY 09/20/20 05/03/22 History Mcg = 1000 Iu)] Ezetimibe/Simvastatin [Vytorin 1 tab PO HS 09/20/20 05/03/22 History 10-20 mg] Loratadine [Claritin] 10 mg PO DAILY 09/20/20 05/03/22 History Multivit-Min/Iron/Folic/Lutein 1 tab PO DAILY 09/20/20 05/03/22 History [Centrum Silver Women Tablet] Raloxifene HCl 60 mg PO DAILY 09/20/20 05/03/22 History Vit C/E/Zn/Coppr/Lutein/Zeaxan 1 tab PO BID 09/20/20 05/03/22 History [Preservision Areds 2 Softgel] Aspirin 325 mg PO BID #60 tab 05/04/22 Rx HYDROcodone/APAP 7.5-325MG [[place] 1 - 2 tab PO Q6H PRN #32 tab 05/04/22 Rx 7.5-325] Sennosides [Senokot] 2 tab PO DAILY PRN #60 tablet 05/04/22 Rx Allergies Allergy/AdvReac Type Severity Reaction Status Date / Time Sulfa (Sulfonamide Allergy Anaphylaxis Verified 05/04/22 09:01 Antibiotics) Physical Exam Vitals: Vital Signs Temp Pulse Pulse Resp BP Pulse Ox 05/04/22 12:49 127/61 05/04/22 12:45 55 L 16 98 05/04/22 12:30 55 L 16 130/64 98 05/04/22 12:15 55 L 16 125/64 99 05/04/22 12:00 58 L 16 123/64 99 05/04/22 11:45 63 16 115/62 99 05/04/22 11:30 65 16 110/58 99 05/04/22 11:17 75 16 111/58 99 05/04/22 09:20 97.6 F 83 16 177/80 96 Intake and Output 05/03/22 05/04/22 05/04/22 22:59 06:59 14:59 Intake Total 1101 Output Total 200 Balance 901 Intake: IV 1101 Output: Estimated Blood Loss 200 Other: Weight 56.9 kg In general patient is alert and oriented x 3 in no distress HEENT head normocephalic and atraumatic Neck is supple no JVD no goiter no lymphadenopathy no carotid bruit Chest examination is clear to auscultation no crackles no wheezing Cardiac exam reveals regular heart sounds S1 and S2 no gallops no murmurs Abdomen is soft nontender no organomegaly with normal bowel sounds Extremity exam reveals no edema no cyanosis or clubbing Neurological examination reveals no gross focal deficits Assessment and Plan Plan: Osteoarthritis of the left hip status post left total hip arthroplasty done today Underlying history of hypertension Underlying history of hyperlipidemia Underlying history of osteoarthritis Underlying history of vitamin D deficiency At this time patient was seen and examined Home medications reviewed and reordered Pain management and DVT prophylaxis as per orthopedic protocol Will follow closely during this hospitalization
[2022-05-04] MEDS: SODIUM CHLORIDE 0.9% 1,000 ML IV SCH (15:38)
[2022-05-04] MEDS: ALPRAZolam 0.25 MG TAB PO SCH (17:15)
[2022-05-04] MEDS: ASPIRIN 325 MG TAB PO SCH (20:04)
[2022-05-04] MEDS: VIT A,C & E-LUTEIN-MINERALS 1 EACH TAB PO SCH (20:37)
[2022-05-04] MEDS ORDERED: ATORVASTATIN 10 MG TAB PO SCH (21:00)
[2022-05-04] MEDS ORDERED: EZETIMIBE 10 MG TAB PO SCH (21:00)
[2022-05-04] MEDS ORDERED: SENNOSIDES-DOCUSATE SODIUM 1 EACH TAB PO SCH (21:00)
[2022-05-05 02:38] VITALS: PULSE 63
[2022-05-05] MEDS: ACETAMINOPHEN TAB 500 MG TAB PO PRN (06:00)
[2022-05-05 07:45] VITALS: BP 130/65; RESP 17; TEMP 98.1
[2022-05-05] MEDS: LACTATED RINGERS 1,000 ML IV SCH (07:51)
[2022-05-05] MEDS: SODIUM CHLORIDE 0.9% 1,000 ML IV SCH (08:01)
[2022-05-05] MEDS: VIT A,C & E-LUTEIN-MINERALS 1 EACH TAB PO SCH (08:57)
[2022-05-05] MEDS: ASPIRIN 325 MG TAB PO SCH (08:57)
[2022-05-05 08:59] LABS: Basophils # (A) 0.02 X 10*3/uL (0.00-0.10); Basophils % (A) 0.2 %; Eosinophils # (A) 0.05 X 10*3/uL (0.04-0.35); Eosinophils % (A) 0.4 %; HCT 36.8 % (37.2-46.3); HGB 12.2 g/dL (12.0-15.0); Immature Grans, Automated 0.5 %; Lymphocytes # (A) 2.16 X 10*3/uL (0.90-5.00); Lymphocytes % (A) 18.6 %; MCH 33.2 pg (27.0-32.0); MCHC 33.2 g/dL (32.0-37.0); MCV 100.3 fL (80.0-97.0); Mean Platelet Volume 10.1 fL (9.5-12.2); Monocytes # (A) 1.05 X 10*3/uL (0.20-1.00); NRBC Per 100 WBC 0 /100 WBCS (0.0-0.0); Neutrophils % (A) 71.3 %; Platelet Count 195 X 10*3/uL (140-440); RBC 3.67 X 10*6/uL (4.10-5.20); RDW 12.1 % (11.5-14.5); WBC 11.64 X 10*3/uL (4.50-10.00)
[2022-05-05] MEDS: ALPRAZolam 0.25 MG TAB PO SCH (08:59)
[2022-05-05] MEDS ORDERED: RALOXIFENE 60 MG TAB PO SCH (09:00)
[2022-05-05] MEDS ORDERED: MULTIVITAMINS, THERA 1 EACH TAB PO SCH (09:00)
[2022-05-05] MEDS ORDERED: CHOLECALCIFEROL 25 MCG (1000 IU) TABLET PO SCH (09:00)
[2022-05-05] MEDS ORDERED: ASPIRIN 81 MG PO SCH ×2 (09:00→21:00)
[2022-05-05] MEDS ORDERED: LORATADINE 10 MG TAB PO SCH (09:00)
[2022-05-05 09:28] LABS: ALT 17 U/L (4-34); AST 35 U/L (14-36); African American GFR (CKD) 70 (>60 ml/min/1.73 sqM); Albumin 3.4 g/dL (3.5-5.0); Albumin/Globulin Ratio 1.5; Alkaline Phosphatase 60 U/L (38-126); Anion Gap 9 mmol/L; Blood Urea Nitrogen 18 mg/dL (7-17); Calcium 8.6 mg/dL (8.4-10.2); Carbon Dioxide 25 mmol/L (22-30); Chloride 104 mmol/L (98-107); Globulin 2.2 g/dL; Glucose 86 mg/dL (74-99); Non-African American GFR(CKD) 61 (>60 ml/min/1.73 sqM); Potassium 4.2 mmol/L (3.5-5.1); Sodium 138 mmol/L (137-145); Total Bilirubin 0.5 mg/dL (0.2-1.3); Total Protein 5.6 g/dL (6.3-8.2)
--- NOTE | 2022-05-05 09:42 | P.PN ---
Subjective Progress Note Date: 05/05/22 Ame Ward, is an 86-year-old female who was admitted to [facility] by Dr. Josep Mcguire and underwent left total hip arthroplasty, medical consultation was requested for management while hospitalized. Patient was seen and examined on the medical floor postoperatively she is alert and oriented 3 in no apparent distress she is complaining of mild pain in the left hip area, otherwise she denies any complaints, there is no fever or chills no headache or dizziness no chest pain no shortness of breath no cough no nausea or vomiting no abdominal pain no diarrhea no blood in the stools no burning with urination no frequency or urgency and no hematuria. Patient was able to ambulate from her bed to the bathroom. On 05/05/2022 patient's alert and oriented 3. She reports that she has been working with physical therapy and states discharged today. Patient does report adequate pain control with Tylenol at this time. Patient denies chest pain or shortness of breath. Patient denies nausea vomiting or diarrhea. Patient denies any urinary burning or frequency Objective - Vital Signs Vital signs: Vital Signs Temp 98.1 F 05/05/22 07:44 Pulse 63 05/05/22 07:44 Resp 17 05/05/22 07:44 BP 130/65 05/05/22 07:44 Pulse Ox 95 05/05/22 07:44 FiO2 Intake & Output 05/04/22 05/05/22 05/05/22 18:59 06:59 18:59 Intake Total 1101 Output Total 200 Balance 901 Weight 56.9 kg Intake: IV 1101 Output: Estimated Blood Loss 200 Other: Voiding Method Toilet # Voids 1 1 - Exam In general patient is alert and oriented x 3 in no distress HEENT head normocephalic and atraumatic Neck is supple no JVD no goiter no lymphadenopathy no carotid bruit Chest examination is clear to auscultation no crackles no wheezing Cardiac exam reveals regular heart sounds S1 and S2 no gallops no murmurs Abdomen is soft nontender no organomegaly with normal bowel sounds Extremity exam reveals no edema no cyanosis or clubbing Neurological examination reveals no gross focal deficits - Labs CBC & Chem 7: 05/05/22 05:46 05/05/22 05:46 Labs: Abnormal Lab Results - Last 24 Hours (Table) 05/05/22 05/05/22 Range/Units 05:46 05:46 WBC 11.64 H (4.50-10.00) X 10*3/uL RBC 3.67 L (4.10-5.20) X 10*6/uL Hct 36.8 L (37.2-46.3) % MCV 100.3 H (80.0-97.0) fL MCH 33.2 H (27.0-32.0) pg Immature Gran # 0.06 H (0.00-0.04) X 10*3/uL Neutrophils # 8.30 H (1.80-7.70) X 10*3/uL Monocytes # 1.05 H (0.20-1.00) X 10*3/uL BUN 18 H (7-17) mg/dL Total Protein 5.6 L (6.3-8.2) g/dL Albumin 3.4 L (3.5-5.0) g/dL Assessment and Plan Plan: Osteoarthritis of the left hip status post left total hip arthroplasty done 05/04/2022 Underlying history of hypertension Underlying history of hyperlipidemia Underlying history of osteoarthritis Underlying history of vitamin D deficiency At this time patient was seen and examined Home medications reviewed and reordered Pain management and DVT prophylaxis as per orthopedic protocol Will follow closely during this hospitalization Awaiting lab work Anticipate discharge today per orthopedic surgery
--- NOTE | 2022-05-05 11:34 | P.DS ---
Providers Expected date of discharge: 05/05/22 Attending physician: Josep Nayak Consults: 05/04/22 09:26 Consult Physician Routine Consulting Provider: Boyd Reeves Consult Reason/Comments: medical management Do you want consulting provider notified?: Yes Primary care physician: Boyd Reeves - Discharge Diagnosis(es) (1) Osteoarthritis of left hip Current Visit: Yes Status: Acute (2) S/P total left hip arthroplasty Current Visit: Yes Status: Acute Hospital Course: This is a 74 -year-old female with known history of degenerative arthritis of the L hip. The patient presents for evaluation. After discussion and consideration patient elects to proceed with total hip arthroplasty with direct anterior approach. The patient is seen preoperatively by primary care physician and cleared for surgery. Patient is admitted to [facility] on 05/04/2022 for total hip arthroplasty with direct anterior approach. The procedure is performed without complication or sequelae. The patient is doing well postoperatively. Labs and vital signs are stable on day of discharge. On day of discharge patient's hip incision is healing well. There is minimal erythema. There is no drainage noted at this time. There is minimal soft tissue swelling to the hip and thigh. Patient has full foot and ankle motion without difficulty or pain. Neurovascular status to the lower extremity is intact. Patient is discharged to home in good condition. Please see med rec for accurate list of home medications. Plan - Discharge Summary Discharge Rx Participant: No New Discharge Prescriptions: New Aspirin 325 mg PO BID #60 tab HYDROcodone/APAP 7.5-325MG [Marshall 7.5-325] 1 - 2 tab PO Q6H PRN #32 tab PRN Reason: Pain Sennosides [Senokot] 2 tab PO DAILY PRN #60 tablet PRN Reason: Constipation No Action Vit C/E/Zn/Coppr/Lutein/Zeaxan [Preservision Areds 2 Softgel] 1 tab PO BID Ezetimibe/Simvastatin [Vytorin 10-20 mg] 1 tab PO HS Multivit-Min/Iron/Folic/Lutein [Centrum Silver Women Tablet] 1 tab PO DAILY Loratadine [Claritin] 10 mg PO DAILY Acetaminophen Tab [Tylenol] 500 mg PO Q8H PRN PRN Reason: Fever And/ Or Pain Raloxifene HCl 60 mg PO DAILY Cholecalciferol [Vitamin D3 (25 Mcg = 1000 Iu)] 50 mcg PO DAILY Aspirin EC [Ecotrin Low Dose] 81 mg PO DAILY ALPRAZolam [Xanax] 0.125 mg PO BID@0900,1700 Discharge Medication List ALPRAZolam [Xanax] 0.125 mg PO BID@0900,1700 09/20/20 [History] Acetaminophen Tab [Tylenol] 500 mg PO Q8H PRN 09/20/20 [History] Aspirin EC [Ecotrin Low Dose] 81 mg PO DAILY 09/20/20 [History] Cholecalciferol [Vitamin D3 (25 Mcg = 1000 Iu)] 50 mcg PO DAILY 09/20/20 [History] Ezetimibe/Simvastatin [Vytorin 10-20 mg] 1 tab PO HS 09/20/20 [History] Loratadine [Claritin] 10 mg PO DAILY 09/20/20 [History] Multivit-Min/Iron/Folic/Lutein [Centrum Silver Women Tablet] 1 tab PO DAILY 09/20/20 [History] Raloxifene HCl 60 mg PO DAILY 09/20/20 [History] Vit C/E/Zn/Coppr/Lutein/Zeaxan [Preservision Areds 2 Softgel] 1 tab PO BID 09/20/20 [History] Aspirin 325 mg PO BID #60 tab 05/04/22 [Rx] HYDROcodone/APAP 7.5-325MG [Marshall 7.5-325] 1 - 2 tab PO Q6H PRN #32 tab 05/04/22 [Rx] Sennosides [Senokot] 2 tab PO DAILY PRN #60 tablet 05/04/22 [Rx] Follow up Appointment(s)/Referral(s): Boyd Reeves MD [Primary Care Provider] - 1 Week Josep Nayak DO [Doctor of Osteopathic Medicine] - 05/14/22 2:00 pm [facility] Visiting Nurse, [NON-STAFF] - 1-2 Days ([facility] will call you to schedule your in home physical therapy visits and nursing. ) Activity/Diet/Wound Care/Special Instructions: Weightbearing as tolerated with walker. Leave dressing intact. Dressing may be removed by home care nurse or by patient in 7 days. Then change dressing twice daily until follow up. May shower with initial dressing intact and after removal. If dressing become saturated, please remove. Please take aspirin 325mg twice daily for 30 days to prevent blood clots. Recommend use of compression stockings daily until follow up to help prevent swelling and blood clots. May remove at night before sleeping. Please follow-up with [facility] in 2 weeks and call with any questions or concerns, . Discharge Disposition: HOME WITH HOME HEALTH SERVICES
== END 2022-05-05 13:03 | disposition home health service (06) ==
LOC: OR 08:50 → 4SSUR 11:11 → OR 05-05 13:03
PROVIDERS: ATTEND Orthopaedic Surgery
DX: M16.12 Unilateral primary osteoarthritis, left hip (principal); M25.752 Osteophyte, left hip; E78.5 Hyperlipidemia, unspecified; Z79.82 Long term (current) use of aspirin; Z79.899 Other long term (current) drug therapy; Z86.69 Personal history of other diseases of the nervous system and sense organs; Z88.2 Allergy status to sulfonamides
CPT/HCPCS: 27130; 97161; 97535; 97166; 80053; 85025; 88300; 73501; C1776; J1100; J0690 ×3; J2405; J2795; J1170; 86850; 86900; 86901